=== PATIENT | male | born 1930 | race African-American/Black ===

== ENCOUNTER 2016-11-20 19:13 | Inpatient (IN) | payer MEDICARE, MEDICAID ==
[~2016-11-20] VITALS: Ht 180.3 cm; Wt 72.6 kg
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
[2016-11-20 19:20] VITALS: BP 171/74; PULSE 80; RESP 16; O2SAT 96
[2016-11-20 19:43] VITALS: BP 171/74; PULSE 78; RESP 22; O2SAT 97
[2016-11-20 20:02] LABS: BASOPHILS % (AUTO) 0.1 % (0-3); EOSINOPHILS % (AUTO) 0.4 % (0-5); MONOCYTES % (AUTO) 9.6 % (4-12); Mean Corpuscular Hemoglobin 29.7 pg (27.0-35.0); Mean Corpuscular Volume 89.2 fL (81-100); NEUTROPHILS % (AUTO) 73.8 % (40-74); Platelet Count 156 bil/L (150-400)
[2016-11-20 20:42] LABS: TROPONIN T 0.041 ug/L (0.0-0.011)
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
--- NOTE | 2016-11-20 21:25 | DRSVH ---
PROCEDURE: CT BRAIN WITHOUT CONTRAST ([id number]) INDICATIONS: altered, confused, TECHNIQUE: Noncontrast 4.5 mm thick angled axial sections acquired from the foramen magnum to the vertex, with c oronal reformats. COMPARISON: None. FINDINGS: Image quality: Excellent. CSF spaces: Basal cisterns are patent. No extra-axial fluid collections. The ventricles are symmet weston in size and shape. Brain: No intracranial bleeds or masses. There is cerebral volume loss for age, with resultant vent ricular and sulcal prominence. There are periventricular and deep white matter chronic small vessel ischemic changes. There is an area of encephalomalacia at the right frontoparietal junction deep whit e matter, extending into the gyrus overlying, consistent with old stroke but no new stroke is found. There is intracranial internal carotid artery atherosclerosis. Skull and face: Calvarium and visualized facial bones appear intact, without suspicious lesions. Sinuses: Visualized sinuses and mastoids are clear. 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 No acute disease. Dictated by: Miguel Ángel Henry M.D. on 11/20/2016 at 21:23 Approved by: Miguel Ángel Henry M.D. on 11/20/2016 at 21:23
--- NOTE | 2016-11-20 21:27 | DRSVH ---
PROCEDURE: CT ABDOMEN AND PELVIS WITH CONTRAST ([id number]) INDICATIONS: altered, confused,tense and tender belly TECHNIQUE: After the administration of intravenous contrast, 5 mm thick sections acquired from the diaphragm to the symphysis. 5 mm coronal and sagittal reformats were acquired. For radiation dose reduction, the following was used: automated exposure control, adjustment of mA and/or kV according to patient siz e. COMPARISON: None. FINDINGS: Image quality: Excellent. ABDOMEN: Lung bases: Lung bases are clear. Heart size is normal. Solid organs: Liver and spleen are normal in size and enhancement. There are scattered small hepati c and renal cortical cysts but no solid mass lesion is seen nor is there evidence of inflammatory tracy nge. Gallbladder the gallbladder appears normal. Biliary system is non dilated. Pancreas enhances normally. No adrenal nodules. Kidneys demonstrate normal size and enhancement, without hydronephros is. Peritoneum and bowel: Bowel loops demonstrate normal wall thickness and caliber. No free fluid or a ir. Nodes and vessels: No retroperitoneal or mesenteric adenopathy by size criteria. Aorta and inferior vena cava are normal in size. Miscellaneous: No ventral hernias. PELVIS: Genitourinary: Bladder wall thickness is normal. Miscellaneous: No inguinal hernias or adenopathy. Bones: No suspicious bony lesions. No vertebral body compression fractures. IMPRESSION: Nonspecific bowel gas pattern, with note is made of no evidence of underlying infection or neoplasm. Scattered hepatic and renal parenchymal cysts are present, none of which appear inflame d. A source of current altered mental status is not seen. Dictated by: Miguel Ángel Henry M.D. on 11/20/2016 at 21:26 Approved by: Miguel Ángel Henry M.D. on 11/20/2016 at 21:26
[2016-11-20 22:45] LABS: APPEARANCE,URINE CLOUDY (CLEAR,HAZY); COLOR,URINE YELLOW (YELLOW); OCCULT BLOOD,URINE MODERATE (NEGATIVE); PH,URINE 6.5 (5.0-8.0); UROBILINOGEN,URINE NORMAL (NORMAL)
[2016-11-20] MEDS ORDERED: cefTRIAXone Inj 2,000 MG in IV Premix 1 EACH IV ONE (22:55)
[2016-11-20] MEDS: 0.9% Sodium Chloride 1,000 ML IV SCH (23:21)
[2016-11-20] MEDS ORDERED: hydrALAZINE 20 mg/mL Inj IV ONE (23:55)
[2016-11-21] VITALS (12 sets, daily range): BP systolic 114–192; BP diastolic 62–98; PULSE 77–97; RESP 16–19; O2SAT 93–99
[2016-11-21] MEDS: 0.9% Sodium Chloride 1,000 ML IV SCH ×4 (00:07→18:03)
[2016-11-21] MEDS ORDERED: Ondansetron 2 mg/mL 2 mL Inj IVPUSH PRN (00:20)
[2016-11-21] MEDS ORDERED: Polyethylene Glycol (PEG) 17 Gm Powder PO PRN (00:20)
[2016-11-21] MEDS ORDERED: Alum-Mag Hydrox-Simeth 30 mL Suspension PO PRN (00:20)
[2016-11-21] MEDS ORDERED: HYDROcodone-APAP 5-325 mg Tablet PO PRN (00:20)
--- NOTE | 2016-11-21 00:40 | NUR ---
Admit Note Pt. arrived on floor around 0015. Pt. seemed very uncomfortable. Enid care was performed, and skin assessment was done. Pt. seems more comfortable. Pt.'s peripheral IV is intact and patent. Admission questions answered by daughter. Pt. is on RA. Will continue to monitor.
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
[2016-11-21] MEDS: Heparin 5,000 Unit/mL Inj SUBQ SCH ×3 (01:31→16:27)
[2016-11-21] MEDS ORDERED: OXYC10TA8 PO (01:46)
[2016-11-21] MEDS ORDERED: ATOR80TA77 PO (01:46)
[2016-11-21] MEDS ORDERED: OXYC20TA4 PO ×2 (01:46)
[2016-11-21] MEDS ORDERED: CARV3.122 PO (01:46)
[2016-11-21] MEDS ORDERED: NUTR113P PO (01:46)
[2016-11-21] MEDS ORDERED: ISOS30TA4 PO (01:46)
[2016-11-21] MEDS ORDERED: HYDR-3940 PO (01:46)
[2016-11-21] MEDS ORDERED: TRAZ-118 PO (01:46)
[2016-11-21] MEDS ORDERED: AMLO5TAB2 PO (01:46)
[2016-11-21] MEDS ORDERED: Labetalol 5 mg/mL 4 mL Inj IVPUSH ONE (02:40)
[2016-11-21 06:06] LABS: Phosphorus 2.5 mg/dL (2.5-4.9)
[2016-11-21 06:34] LABS: BASOPHILS % (AUTO) 0.1 % (0-3); EOSINOPHILS % (AUTO) 0.1 % (0-5); MONOCYTES % (AUTO) 9.8 % (4-12); Mean Corpuscular Hemoglobin 29.9 pg (27.0-35.0); Mean Corpuscular Volume 88.4 fL (81-100); NEUTROPHILS % (AUTO) 79.3 % (40-74); Platelet Count 174 bil/L (150-400)
[2016-11-21] MEDS ORDERED: hydrALAZINE 20 mg/mL Inj IV PRN (06:50)
[2016-11-21] MEDS: Isosorbide Mononitrate 30 mg ER24 Tablet PO SCH (09:22)
--- NOTE | 2016-11-21 09:30 | NUR ---
Patient Care Pt refused almost all care this morning. Pt refused to have ACHS checks, insulin, and Lovenox despite education. Pt refused to have labs drawn. Pt refused to have vitals taken. Pt accepted IV antibiotics and pain medication. Will continue to encourage pt to allow treatments for his benefit. Care continues. Addendum: 11/21/16 at 1128 by OLI MORSE RN Disregard. Note written on wrong pt.
--- NOTE | 2016-11-21 11:40 | NUR ---
Social Work Assessment: SW attempted to conduct assessment with patient. Patient is confused at this time and unable to participate. Patient is an 86 year old male admitted under observation status on 11/20/16 for AMS and UTI. SW contacted patient daughter Serena, who verified patient information. Patient payer as Medicare and [facility] supp secondary. Patient PCP as MD Guevara, last seen on the of the month. Patient resides in [facility] with daughter. Patient daughter states she cares for patient needs 24hrs/day and she doesn't work. Patient pharmacy of choice as [facility]. Patient has no previous HHC, SNF or AD history. Patient uses a cane and walker at home. Patient daughter states plan is for patient to return home following discharge. Patient daughter denied need for HHC at this time as she states that she is equipped to mange patient baseline at this time. If HHC recommended, choice as [facility]. HHC choice list offered and declined. No anticipated discharge needs at this time. SW to follow. PLAN: Home with daughter 24hr/day care and support via POV. Denied need for HHC but if needed choice as [facility]. SW to follow. Discharge pending clinical course Jose Guadalupe FARMER Addendum: 11/21/16 at 1148 by BRIEN HERRERA Amended: Links added.
--- NOTE | 2016-11-21 12:30 | NUR ---
Case Management: CAMPOS delivered and signed by daughter, Serena Covington. Original placed in chart and copy left at bedside. Beatris Baron RN
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
--- NOTE | 2016-11-21 17:37 | NUR ---
Activity Pt rested comfortably in bed during the shift. Pt is [place] and has a hard time understanding what is going on. Pt is incontinent of urine. When asked if he could use the urinal he stated to "leave me alone." Pt was compliant and taking medications during the morning but this afternoon when woken up to give his heparin he stated to "leave him alone," and refused the heparin. I will continue to monitor his agitation. Per pt daughter pt frequently says "help me lord, help me" daily at baseline. Experienced pt saying this during bath and brief changes. Care continues.
[2016-11-21] MEDS ORDERED: cefTRIAXone Inj 2,000 MG in IV Premix 1 EACH IV SCH (20:00)
[2016-11-21] MEDS: cefTRIAXone Inj 2,000 MG in Dextrose 5% Minibag Plus 50 ML IV SCH (20:13)
--- NOTE | 2016-11-22 | NUR ---
7-7am [employer] REFUSED VITAL SIGNS, RN IS AWARE. Addendum: 11/22/16 at 0021 by ZEFERINO PEREZ CNA Amended: Links added.
[2016-11-22] MEDS: Heparin 5,000 Unit/mL Inj SUBQ SCH ×3 (00:20→16:48)
--- NOTE | 2016-11-22 01:01 | NUR ---
Refusal of care Patient agitated and refusing care specifically Heparin injection at 0030. Demanded to be left alone, when explained the medication to be administered and the purpose of the medication, patient repeated that he wanted "to be left alone."
[2016-11-22 05:11] VITALS: BP 174/71; PULSE 78; RESP 18; O2SAT 95
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
[2016-11-22] MEDS: 0.9% Sodium Chloride 1,000 ML IV SCH ×2 (07:43→19:53)
[2016-11-22] MEDS: cefTRIAXone Inj 2,000 MG in Dextrose 5% Minibag Plus 50 ML IV SCH (08:24)
[2016-11-22] MEDS: Isosorbide Mononitrate 30 mg ER24 Tablet PO SCH (08:25)
[2016-11-22 11:20] VITALS: BP 148/68; PULSE 82; RESP 22; O2SAT 95
--- NOTE | 2016-11-22 14:35 | NUR ---
Confusion Pt. very confused, calling out for help if during position changes. Becomes agitated when trying to do assessment and med administration, saying he wants to be left alone. He took PO meds without complaint, but refused to have heparin injection. Pt. wearing SCDs.
[2016-11-22 16:10] VITALS: PULSE 80
[2016-11-22 16:35] VITALS: BP 137/55; PULSE 80; RESP 20; O2SAT 99
[2016-11-22 17:22] VITALS: PULSE 85
--- NOTE | 2016-11-22 18:00 | NUR ---
critical lab value abbey armendariz called to notify troponin level 0.046. dr. rachel notified, orders recd for troponin level.
[2016-11-22 20:00] VITALS: PULSE 85
[2016-11-23] VITALS (7 sets, daily range): BP systolic 122–155; BP diastolic 55–76; PULSE 60–80; RESP 16–18; O2SAT 94–98
[2016-11-23] MEDS: 0.9% Sodium Chloride 1,000 ML IV SCH ×2 (00:39→14:31)
[2016-11-23] MEDS: Heparin 5,000 Unit/mL Inj SUBQ SCH ×4 (01:25→23:11)
--- NOTE | 2016-11-23 06:01 | NUR ---
Evening lab value Night team hospitalist notified of change in lab values via cook page. Patient able to sleep intermittently throughout night, calling out Sinus rhythm 71 with IVCD. Bed in low position, call light within reach, and intentional rounding.
[2016-11-23] MEDS: cefTRIAXone Inj 2,000 MG in Dextrose 5% Minibag Plus 50 ML IV SCH (09:15)
[2016-11-23] MEDS: Isosorbide Mononitrate 30 mg ER24 Tablet PO SCH (09:17)
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
--- NOTE | 2016-11-23 13:21 | NUR ---
Palliative Care Palliative Care received verbal order from Dr Brown 11/23/16 to assist with goals of care. Patient is an 86 year old with history of chronic pain, HTN, possible stroke, possible MA and urinary incontinence. He was admitted 11/20/16 due to increasing confusion and weakness. He is receiving care for AMS and UTI. Patient lives with his daughter Serena. Serena Wishum (daughter) [phone] Palliative Care to follow. Freda Jamil
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
[2016-11-24] VITALS (7 sets, daily range): BP systolic 108–156; BP diastolic 61–67; PULSE 55–66; RESP 16–18; O2SAT 93–96
--- NOTE | 2016-11-24 02:53 | NUR ---
Patient Care Patient's ability to communicate needs improved, cooperative with care, distinctive decrease in calling out and less agitation. Answers questions appropriately with limitations possibly narrowed to hearing deficit. Will continue to monitor confusion. Bed in low position, call light within reach and intentional rounding.
[2016-11-24 06:37] LABS: BASOPHILS % (AUTO) 0.2 % (0-3); EOSINOPHILS % (AUTO) 1.4 % (0-5); MONOCYTES % (AUTO) 13.9 % (4-12); Mean Corpuscular Hemoglobin 29.2 pg (27.0-35.0); Mean Corpuscular Volume 90.9 fL (81-100); NEUTROPHILS % (AUTO) 62.1 % (40-74); Platelet Count 163 bil/L (150-400)
[2016-11-24 09:28] LABS: Unsaturated Iron Binding 103.6 ug/dL
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
--- NOTE | 2016-11-24 11:25 | NUR ---
NUTRITION ASSESSMENT: ASSESS: Pt is an 86yo M admitted for AMS and UTI. Pt continues to have some confusion but mentation is slowly improving. Pt is on a Heart Healthy diet and PO has been fair at 25-100%. Palliative care is involved for goals of care. PMHX: chronic pain, HTN, poss CVA, poss RI LABS: Reviewed. Cl 112, Bun 28, Bilingual Teacher 1.36, Ca 8.0, Alb 2.7 MEDS: Reviewed. GI: BMx1 11/22 SKIN: Boby 15 CURRENT WTS: 72kg, BMI 22.1kg/m2 DIET: Heart Healthy, PO 25-100% (PO avg is 54%) EST. NEEDS: Kcals:1800-2160kcal/day (25-30kcal/kg) Pro: 70-85g/day (1.0-1.2g/kg) NUTRITION DIAGNOSIS: 1.) Variable PO intake related to AMS as evidence by PO ranging from 25-100% NUTRITION INTERVENTION: 1.) Will add Ensure on L tray MONITOR / EVAL: PO, wt, labs, GI, POC, nutrition status. Will continue to monitor per moderate nutrition risk guidelines.
[2016-11-24] MEDS: cefTRIAXone Inj 2,000 MG in Dextrose 5% Minibag Plus 50 ML IV SCH (11:56)
[2016-11-24] MEDS: Isosorbide Mononitrate 30 mg ER24 Tablet PO SCH (11:58)
[2016-11-24] MEDS: Heparin 5,000 Unit/mL Inj SUBQ SCH ×2 (12:00→16:08)
--- NOTE | 2016-11-24 12:11 | PCM.PALLBR ---
Palliative Care Recommendation 86-year-old gentleman with history of prior CVA and possible PA, admitted with progressive encephalopathy of relatively short duration. Under treatment for urinary tract infection. His daughter/caregiver notes that he had a similar episode 1-2 years ago with complete recovery. Palliative medicine consulted to assist with determination of goals of care. Summary of palliative recommendations: -Symptom management (Pain/other)- comfortable at this time. Continued management per medical/hospitalist teams. History of chronic narcotic treatment , presumably for his chronic back pain- continue current medications and resume usual outpatient medications at discretion of hospitalist team. -DPOA/Advanced Directives/POLST- continues to be full code at this time. Daughter confirms this. She notes that "he wants to live to be 89". As the patient is symptomatically stable, overall clinically improving, and goals of care are clearly defined by his daughter, palliative medicine will sign off at this time. Please contact us if we may be of further assistance. Patient Goals: 1. Patient's daughter wants to be told the truth about his illness, even if it is unpleasant. 2. Patient's daughter would like to be told prognosis when it can be predicted, to better guide treatment decisions. Additional Medical Diagnoses with primary management by Hospitalist team include : #Acute Encephalopathy, Acute #Urinary tract Infection, acute #Acute Kidney Injury #Elevated Troponin #Hypertension, chronic, POA #History of Stroke and PA #Chronic Pain, POA #Tobacco Dependence, POA Problems: End of Life Preferences Full code Goals of Care His daughter hopes for recovery to baseline and return home with her Disposition To be determined Resuscitation Status Resuscitation Status: CPR: Attempt Resuscitation POLST Updates/Changes Previous POLST?: No . Pain: None Total time 40 minutes; >50% face to face with patient and family, providing counselling regarding plans and recommendations, and in care coordination with his medical teams. copies to: Flavio Guevara MD Palliative Brief Note Date of Service Nov 24, 2016 . Returned to reevaluate patient twice today. On first visit, his daughter and grandson were present and I spoke with her about his status, plans, etc. Nurse aides were helping him up to chair at this time and he was complaining loudly. His daughter felt that said that he was essentially back at his baseline- she said she could tell because he was yelling at her and swearing at her. She wanted to make sure that he was ambulated and up in the chair as much as possible so as to maintain strength level he previously had at home. She looks forward to continuing his care at home and continues to support full/aggressive medical treatment for any problems. Spoke with his bedside nurse and with physical therapist regarding his status. Returned later to reevaluate patient once more. At that time he was resting in bed but awakened easily, answers questions appropriately and overall appeared stronger and more coherent. Denied any shortness of breath, chest pain, abdominal pain, nausea or other. On exam, elderly gentleman in no distress. Vitals noted. Skin warm and dry. Head and neck exam without acute focal abnormalities. Lungs clear today, heart sounds regular, abdomen soft, scaphoid and benign. No ankle edema. Labs and imaging studies reviewed in detail. Jadon Madison MD Nov 24, 2016 12:11
--- NOTE | 2016-11-24 14:17 | NUR ---
CT 13[address] Pt off unit to CT scan. Pt VSS, NESBITT, still mildly confused and calling out. Alert to self only. IV infusing.
--- NOTE | 2016-11-24 15:32 | DRSVH ---
[facility] [address] [place] [address] Echocardiogram Report Name: DION PANIAGUA Study Date: 11/24/2016 Height: 71 in Hospital Exam Location: [facility] Weight: 159 lb Gender: Male BSA: 1.9 m2 : 1930 Age: 86 yrs BP: 150/67 mmHg Reason For Study: Elevated Troponin Ordering Physician: HOSPITALIST [facility] Performed By: Hebert Winters Referring Physician: ISRAEL CANTU Interpretation Summary There is severe concentric left ventricular hypertrophy. The ejection fraction is estimated to be 60-65%. Increased echogenicity of the myocardium is suggestive of amylodosis, or infiltrative process. There is moderate aortic valve sclerosis. There is mild tricuspid regurgitation. Procedure: A two-dimensional transthoracic echocardiogram with color flow and Doppler was performed. The study quality was technically good. There is no prior echocardiogram noted for this patient. The patient was in sinus bradycardia with heart rates between 55-63 bpm during the exam. Left Ventricle: The left ventricular cavity is small. There is severe concentric left ventricular hypertrophy. The ejection fraction is estimated to be 60-65%. Increased echogenicity of the myocardium is suggestive of amylodosis, or infiltrative process. Assessment of diastolic parameters indicates a relaxation abnormality of the left ventricle, consistent with normal filling pressures. Right Ventricle: The right ventricle grossly appears normal in size with probable normal systolic function. Atria: There is mild biatrial enlargement. Mitral Valve: The mitral valve is grossly normal. There is mild mitral annular calcification. There is trace mitral regurgitation. Aortic Valve: The aortic valve is trileaflet. There is moderate aortic valve sclerosis. There is no aortic valve stenosis. No aortic regurgitation is present. Tricuspid Valve: The tricuspid valve is normal. There is mild tricuspid regurgitation. Pulmonic Valve: The pulmonic valve is not well visualized. There is a trace or physiologic amount of pulmonic regurgitation. Great Vessels: The aortic root is normal size. The dimensions of the ascending aorta are normal. The pulmonary artery is normal size. The IVC is of normal diameter and collapses greater than 50% with a sniff. This suggests a low right atrial pressure of 3 mm Hg. Pericardium/ Pleura There is no pericardial effusion. There is no pleural effusion. MMode/2D Measurements & Calculations LVIDd: 3.5 cm RA long axis LVOT diam LVIDs: 2.3 cm LA A2 area: 19.5 cm FS: 32.4 % LA A4 area: 22.6 cm RA area AoV Opening EPSS: 0.48 cm LA length (vol): 5.7 cm IVSd: 1.7 cm LA vol: 65.6 ml : 20.8 cm Ao root diam LVPWd: 1.7 cm LA vol index RA vol : 64.5 ml asc Aorta RA Diam: 2.9 cm IVC diam: 0.98 cm : 33.7 mm2 LV bsihop. diameter/BSA LV sys. diameter/BSA RVD1 (basal) RVD2 (mid) (cm/m^2): 1.8 (cm/m^2): 1.2 : 3.0 cm TAPSE: 1.8 cm Doppler Measurements & Calculations Ao V2 max MV E max tian MV E/A: 0.64 TR max tian : 160.9 cm/sec : 66.8 cm/sec Med Peak E' Tian : 290.6 cm/sec Ao max P.4 mmHg MV A max tian TR max PG Ao mean P.6 mmHg : 104.3 cm/sec E/E' med: 14.7 : 33.8 mmHg LVOT Max Tian Lat Peak E' Tian PA V2 max : 112.3 cm/sec : 91.7 cm/sec JENNIFER(I,D): 2.4 cm E/E' lat: 11.5 PA mean PG sev ratio: 0.71 E/e' average : 1.5 mmHg MV A dur : 0.13 sec MV dec time: 0.49 sec Ao V2 mean LV V1 max PG PA V2 mean : 112.3 cm/sec : 58.7 cm/sec Ao V2 VTI: 34.3 cmLV V1 VTI PA pr(Accel) JENNIFER(V,D): 2.4 cm2 : 24.3 cm : 34.1 mmHg JENNIFER indexed to BSA (cm^2/m^2): 1.3 Electronically signed by: Chong Kemp on Reading Physician:11/24/2016 03:31 PM
--- NOTE | 2016-11-24 16:04 | DRSVH ---
PROCEDURE: CT BRAIN WITHOUT CONTRAST ([id number]) INDICATIONS: acute encephalopathy TECHNIQUE: Noncontrast 4.5 mm thick angled axial sections acquired from the foramen magnum to the vertex, with c oronal reformats. COMPARISON: [facility], CT, CT BRAIN WO CON, 11/20/2016, 21:08. FINDINGS: Image quality: Excellent. CSF spaces: Basal cisterns are patent. No extra-axial fluid collections. The ventricles are symmet weston in size and shape. Brain: No intracranial bleeds or masses. There is cerebral volume loss for age, with resultant vent ricular and sulcal prominence. There are periventricular and deep white matter chronic small vessel ischemic changes. Chronic right frontal infarct is stable compared to the prior examination. Old, sma ll, right thalamic lacunar infarct is noted. 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 Skull and face: Calvarium and visualized facial bones appear intact, without suspicious lesions. Sinuses: Visualized sinuses and mastoids are clear. IMPRESSION: No acute intracranial disease process. Dictated by: Janelle Salmeron MD, PhD on 11/24/2016 at 16:02 Approved by: Janelle Salmeron MD, PhD on 11/24/2016 at 16:02
[2016-11-24] MEDS: 0.9% Sodium Chloride 1,000 ML IV SCH (16:07)
--- NOTE | 2016-11-24 19:29 | NUR ---
Activity Pt agreeable to care during most of shift, but is confused and calling out at times. Confused and alert to self only. Will answer that he is having some back pain, but declines medication and has periods of sleeping comfortably. Pt able to get up to chair twice today for meals. At end of shift pt was having increasing agitation, yelling and telling us to go away. Medications given to help calm pt and he is resting more comfortably now.
--- NOTE | 2016-11-24 21:57 | NUR ---
Case Management: Called and spoke with Serena Covington (pt's daughter) to explain IMM, all questions answered. Serena signed IMM at 1600 and placed in chart. Jade Shine RN
[2016-11-25] VITALS (8 sets, daily range): BP systolic 124–186; BP diastolic 54–87; PULSE 60–86; RESP 16; O2SAT 96
[2016-11-25] MEDS: Heparin 5,000 Unit/mL Inj SUBQ SCH ×3 (00:53→16:30)
[2016-11-25] MEDS: 0.9% Sodium Chloride 1,000 ML IV SCH ×2 (01:13→14:33)
[2016-11-25 05:08] LABS: Free Thyroxine Index 2.1 (1.2-4.9); T3 Uptake 22 % (24-39); Thyroxine (T4) 9.5 ug/dL (4.5-12.0); Vitamin B12 650 pg/mL (211-946)
[2016-11-25 05:50] LABS: BASOPHILS % (AUTO) 0.2 % (0-3); MONOCYTES % (AUTO) 12.9 % (4-12); Mean Corpuscular Hemoglobin 29.5 pg (27.0-35.0); Mean Corpuscular Volume 89.3 fL (81-100); NEUTROPHILS % (AUTO) 60.6 % (40-74); Platelet Count 171 bil/L (150-400)
--- NOTE | 2016-11-25 06:21 | NUR ---
Agitation Pt agitated whenever cares are performed, screaming and cursing at staff- ativan provides him some sleep, but still agitated when awake. No complaints of pain despite screaming during repositioning. Pt willing to take his PO meds, requires crushing. IVF running, on tele with Sinus rythm, on room air. No cardiac, respiratory, or GI distress. Will continue cares.
[2016-11-25] MEDS: Isosorbide Mononitrate 30 mg ER24 Tablet PO SCH (09:14)
[2016-11-25] MEDS: cefTRIAXone Inj 2,000 MG in Dextrose 5% Minibag Plus 50 ML IV SCH (11:49)
--- NOTE | 2016-11-25 14:37 | PCM.DIMED ---
Discharge Instructions Date of Service Nov 25, 2016 Dates of Hospitalization Nov 20, 2016 at 23:27 Discharge Diagnosis Discharge Diagnosis Acute encephalopathy secondary to UTI Hypertension Acute on Chronic kidney disease History of CVA and NC Chronic pain with chronic opioid prescriptions Tobacco dependence Test Results Negative CT head CT abdomen: IMPRESSION: Nonspecific bowel gas pattern, with note is made of no evidence of underlying infection or neoplasm. Scattered hepatic and renal parenchymal cysts are present, none of which appear inflamed. A source of current altered mental status is not seen. Dictated by: Miguel Ángel Henry M.D. on 11/20/2016 at 21:26 Diet Low fat, Low Sodium, Heart Healthy Activity No restrictions (please stand and walk with assistance by family members or friends) Call your provider Fever or Chills, Shortness of breath, Bleeding, Chest pain Patient Instructions I have prescribed an antibiotic that I would like you to take for 2 more days. This antibiotic is called cefuroxime, please take as prescribed Follow-up plan Please follow up with her primary care doctor in 1 week Follow-up Provider: Flavio Guevara MD Follow-up with PCP in: 1 week Jadon Slater DO Nov 25, 2016 14:37
[2016-11-25] MEDS ORDERED: CEFU250T82 PO (14:41)
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
--- NOTE | 2016-11-25 15:57 | NUR ---
Social Work: Continued Discharge Plan: Parquet Floor Layer called patient's daughter, Serena Covington, to confirm that she did not want HH for the patient. Serena Covington confirmed that she does not want HH. Patient's daughter states that she will picking machine operator the patient when discharge if the nurse calls and notify her when the patient is ready. Parquet Floor Layer notified patient's nurse to call his daughter if he is ready for discharge. SW will continue to follow. Plan: Patient is likely to discharge home with daughter (24 hour caregiver0 in POV. Patient's daughter states that she does not need HH. SW will continue to follow. Hillary Wiggins LMSW, ACM
--- NOTE | 2016-11-25 18:18 | NUR ---
DISCHARGE Patient is alert only to person. Hydrocodone 1 tab administered for c/of generalized pain. Tolerating his diet well. Denies nausea. No emesis noted. Denies SOB. Patient was able to get OOB and sat in the chair for breakfast and lunch. Tolerated activity. Pls. refer to notes RE: HHS. IV saline lock d/cd. Discharge instructions, care notes and prescription was given to Serena, the patients daughter, who is his primary caregiver. She verbalized understanding. Discharged to home with his daughter and all his personal belongings. (Copy of D/C is in the chart).
== END 2016-11-25 17:39 | disposition home or self-care (01) | DRG 698 ==
LOC: SED 19:13 → EDBD 19:13 → OBSVTOIN 23:27 → INTOOBSV 23:27 → OSC 23:27
PROVIDERS: ADMIT Hospitalist; ATTEND Hospitalist
DX: T83.518A Infection and inflammatory reaction due to other urinary catheter, initial encounter (principal); G93.40 Encephalopathy, unspecified; N39.0 Urinary tract infection, site not specified; I10 Essential (primary) hypertension; R32 Unspecified urinary incontinence; G89.4 Chronic pain syndrome; J44.9 Chronic obstructive pulmonary disease, unspecified; F17.210 Nicotine dependence, cigarettes, uncomplicated; Z86.73 Personal history of transient ischemic attack (TIA), and cerebral infarction without residual deficits; I25.2 Old myocardial infarction

== ENCOUNTER 2016-11-28 08:33 | Inpatient (IN) | payer MEDICARE, MEDICAID ==
[2016-11-28] VITALS (11 sets, daily range): BP systolic 164–198; BP diastolic 71–99; PULSE 71–99; RESP 15–30; O2SAT 88–100
[~2016-11-28] VITALS: Ht 180.3 cm; Wt 63.6 kg
[~2016-11-28 08:33] MED LIST: AMLO5TAB2 PO; ATOR80TA77 PO; CARV3.122 PO; CEFU250T82 PO; HYDR-3940 PO; ISOS30TA4 PO; NUTR113P PO; OXYC10TA8 PO; OXYC20TA4 PO; TRAZ-118 PO
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
[2016-11-28] MEDS ORDERED: Lidocaine Topical 2% 30 mL Jelly ONE (08:53)
--- NOTE | 2016-11-28 08:53 | ABG ---
DateTimeAnalyzed 08:49:00 -_ pH ____7.261 - pCO2 ___51.5__ -mmHg pO2 ___67.9__ -mmHg HCO3- ___22.4__ -mmol/L ABE ___-4.6__ -mmol/L tHb ___12.9__ -g/dL O2Hb ___88.2__ -% COHb ____1.5__ -% MetHb ____0.9__ -% sO2 ___90.4__ -% FIO2 __100.0__ -% Drawn By LAB - Date/Time Notified____ 08:53:00 -_ Spontaneous_RR ___30.0__ -b/min Liter_Flow ___15.0__ -L/min Oxygen Device 1 NON RE-SATYA - Notified By JJ - Notified Whom DR LAURSEN - B 752 -mmHg tO2 ___16.1__ -Vol% Trey test N/A -
[2016-11-28 09:00] LABS: BASOPHILS % (AUTO) 0.4 % (0-3); EOSINOPHILS % (AUTO) 0.2 % (0-5)
[2016-11-28 09:04] LABS: MONOCYTES % (AUTO) 15.9 % (4-12); Mean Corpuscular Hemoglobin 29.8 pg (27.0-35.0); Mean Corpuscular Volume 91.4 fL (81-100); NEUTROPHILS % (AUTO) 65.3 % (40-74); Platelet Count 151 bil/L (150-400)
[2016-11-28 09:44] LABS: TROPONIN T 0.08 ug/L (0.0-0.011)
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
[2016-11-28 10:07] LABS: APPEARANCE,URINE SLIGHTLY CLOUDY (CLEAR,HAZY); COLOR,URINE BLOODY (YELLOW); OCCULT BLOOD,URINE LARGE (NEGATIVE)
[2016-11-28 10:08] LABS: UROBILINOGEN,URINE NORMAL (NORMAL); YEAST,URINE FEW (NONE SEEN)
[2016-11-28] MEDS ORDERED: 0.9% Sodium Chloride 1,000 ML IV ONE ×2 (10:22→10:35)
[2016-11-28] MEDS ORDERED: Vancomycin Dose per Pharmacist XX ONE (10:25)
[2016-11-28] MEDS ORDERED: levoFLOXacin Inj 750 MG in IV Premix 1 EACH IV ONE (10:25)
[2016-11-28] MEDS ORDERED: Piperacillin-Tazo 3.375 Gm Inj 3.375 GM in Dextrose 5% Minibag Plus 50 ML IV ONE (10:25)
[2016-11-28] MEDS: Vancomycin Dose per Pharmacist XX SCH (12:25)
--- NOTE | 2016-11-28 12:32 | NUR ---
Evaluation completed. Please go to "Notes" then click on "Assessments and Notes" (bottom left corner of screen). Then select appropriate discipline tab on top of screen.
[2016-11-28 13:41] LABS: TROPONIN T 0.128 ug/L (0.0-0.011)
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
--- NOTE | 2016-11-28 14:35 | PCM.CONPHA ---
Subjective Being found on the floor with food in the mouth Reason for Pharmacy Consult: Vancomycin Dosing Assessment/Plan Assessment/Plan Pharmacy Kinetic Dosing Vancomycin Indication: PNA (recent hospital admit) Vanc goal trough: 15-20 mcg/mL Pt wt: 69 kg Other ABX: Zosyn SCr: 1.54 WBC: 4.8 Cultures: Blood = pending Assessment/Plan: - Loading dose of vancomycin 1,250 mg given. -Will schedule vancomycin 750 mg Q24H based on ~11 mg/kg. -Will schedule random level to be drawn on 11/30/16 @1230 to monitor for accumulation. Pharmacy appreciates consult and will continue to monitor. Thanks, Ian Park, PharmD Ian Park Nov 28, 2016 14:35
[2016-11-28 15:23] LABS: Creatine Kinase 177 U/L (21-232)
--- NOTE | 2016-11-28 16:15 | NUR ---
Admission Patient admitted to the floor at approx 1230 from Ed. Admission questions and medical list completed by primary RN. It was difficult to answer some of the admission questions due to family members present not to familiar with patient's care. Patient was a difficult to get history from. Vancomycin started right away upon patient being situated into the room. Patient complained of pain all over and yells when touched. gave 2mg morphine upon orders. Patient became more calm after morphine was given. Put bed in lowest position, kane alarm bed initiated and call light within reach.
[2016-11-28] MEDS: Albuterol-Ipratropium 3 mL Inhalation Solution NEB SCH ×2 (16:29→20:30)
[2016-11-28] MEDS ORDERED: SODIUM CHLORIDE 0.9% IV SCH (18:30)
[2016-11-28] MEDS ORDERED: PERAMIVIR IV SCH (18:30)
[2016-11-28] MEDS: Piperacillin-Tazo 3.375 Gm Inj 3.375 GM in Dextrose 5% Minibag Plus 50 ML IV SCH (21:11)
[2016-11-29] VITALS (12 sets, daily range): BP systolic 137–171; BP diastolic 68–78; PULSE 64–115; RESP 16–24; O2SAT 92–98
[2016-11-29] MEDS ORDERED: LORazepam 1 mg Tablet PO ONE (00:35)
[2016-11-29] MEDS: Albuterol-Ipratropium 3 mL Inhalation Solution NEB SCH ×6 (00:40→20:23)
--- NOTE | 2016-11-29 03:52 | NUR ---
Restless/ O2 sats unable to orient patient. he appears to answer simple questions at times, but not consistently. pt yelling out loud, observed to be restless, anxious and in some distress around 00:40, HR was in the 120s per school lunch monitor, O2 sats ranging 86-88% on 14 L oxy mask, respiratory effort increased with intermittent yelling, MD notified, new order obtained for Ativan x1. Ativan has been effective, pt has been sleeping since medication administered. pt HR now ranging 60-80, sats 98% on 7.5L oxy mask, work of breathing observed to be relaxed, RR 17 breaths/min. 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 continuing to monitor.
[2016-11-29] MEDS: Piperacillin-Tazo 3.375 Gm Inj 3.375 GM in Dextrose 5% Minibag Plus 50 ML IV SCH ×3 (04:56→22:15)
[2016-11-29 07:15] LABS: BASOPHILS % (AUTO) 0.1 % (0-3); EOSINOPHILS % (AUTO) 0 % (0-5); MONOCYTES % (AUTO) 7.8 % (4-12); Mean Corpuscular Hemoglobin 29.6 pg (27.0-35.0); Mean Corpuscular Volume 91.9 fL (81-100); NEUTROPHILS % (AUTO) 83.1 % (40-74); Platelet Count 128 bil/L (150-400)
[2016-11-29 07:59] LABS: Magnesium 1.7 mg/dL (1.6-2.6); Phosphorus 3.6 mg/dL (2.5-4.9)
[2016-11-29 08:06] LABS: TROPONIN T 0.115 ug/L (0.0-0.011)
[2016-11-29] MEDS: Vancomycin Dose per Pharmacist XX SCH (08:30)
--- NOTE | 2016-11-29 11:31 | NUR ---
Palliative Care Palliative Care received verbal order from Dr Ross 11/29/16 to assist with goals of care. Patient was readmitted 11/28/16 after being found down on the floor while eating. Palliative Care Team saw patient during recent admission. Serena Covington (daughter) [phone] Palliative Care to follow. Freda Jamil
[2016-11-29] MEDS ORDERED: Vancomycin Inj 1,000 MG in IV Premix 1 EACH IV SCH (13:00)
--- NOTE | 2016-11-29 15:20 | NUR ---
Social Work-initial assessment: Data:See initial assessment. Pt is a 86 y/o male who was admitted on 11/28/16 for sepsis per H&P. Pt's insurance is [facility] and [facility] and PCP is Flavio Guevara MD. EMR Reviewed. SENDY placed a call to daughter Serena [phone] to discuss discharge planning, SENDY role explained. Pt resides at home with daughter Serena who provides 24/7 care for pt. Pt uses a fww at baseline and does not drive. Pt has no fci care or VA benefits. Pt has no HH history, but has been to SNF in [place]. Pt's CHARLES CM is Shilpa,updated clinicals faxed. Pt received 137 hours a month. Pt's daughter is CHARLES caregiver. SW discussed DPOA/ advanced directive, daughter does not believe this have completed this. Daughter anticipates to take pt home at discharge either private vehicle or Medicaid taxi( pt did arrive via EMS). SW provided phone number and plan. SW will continue to follow. Assessment:Pt who has 24/7 care. Plan:Pt to discharge home with daughter to provide 24/7 care when medically stable. SW will continue to follow. DARIAN Pérez Addendum: 11/29/16 at 1524 by SERAFIN BAILEY Amended: Links added.
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
[2016-11-29] MEDS ORDERED: 0.9% Sodium Chloride 250 ML ONE (18:22)
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
[2016-11-30] VITALS (13 sets, daily range): BP systolic 158–173; BP diastolic 76–90; PULSE 65–79; RESP 16–20; O2SAT 91–97
[2016-11-30] MEDS: Albuterol-Ipratropium 3 mL Inhalation Solution NEB SCH ×5 (00:04→19:54)
[2016-11-30] MEDS: Piperacillin-Tazo 3.375 Gm Inj 3.375 GM in Dextrose 5% Minibag Plus 50 ML IV SCH ×3 (05:19→20:15)
--- NOTE | 2016-11-30 06:22 | NUR ---
Uneventful Nigh: Pt had an uneventful night, slept most of the night. Pt does yell out at times which in known to be his baseline per daughter. Pt denied pain, chest pain and SOB. Pleasantly confused.
[2016-11-30 07:00] LABS: BASOPHILS % (AUTO) 0.2 % (0-3); EOSINOPHILS % (AUTO) 0.2 % (0-5); MONOCYTES % (AUTO) 10.6 % (4-12); Mean Corpuscular Hemoglobin 29.4 pg (27.0-35.0); Mean Corpuscular Volume 91.8 fL (81-100); NEUTROPHILS % (AUTO) 64.9 % (40-74); Platelet Count 164 bil/L (150-400)
[2016-11-30 07:26] LABS: Magnesium 1.8 mg/dL (1.6-2.6); Phosphorus 2.5 mg/dL (2.5-4.9)
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
[2016-11-30] MEDS: Isosorbide Mononitrate 30 mg ER24 Tablet PO SCH (13:23)
[2016-11-30] MEDS ORDERED: Vancomycin Serum Trough XX ONE (16:30)
--- NOTE | 2016-11-30 18:28 | PCM.PALLBR ---
Palliative Care Recommendation Summary of palliative recommendations: -Symptom management (Pain/other) Pain seems to get adequate relief with his oxycodone. At this point I consider this palliative Agitation we will give try of quetiapine 25 at bedtime increasing as needed-we will start this tonight. 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 Might help to have physical therapy evaluate regarding stability with transfer Loss of consciousness at home thought to be due to or cause of aspiration pneumonia -DPOA/Advanced Directives/POLST-no paperwork has been completed. Patient is not capable for AD/DPOA. We will review CODE STATUS tomorrow- Attempted meeting with his daughter but did not coordinate and will try again tomorrow -Family/emotional support remarkably strong support by his family. His daughter feels that she has adequate support at home -Spiritual support-not needed for patient. Problems: End of Life Preferences full code-- needs further review Goals of [facility] with as much support for daughter as is available Resuscitation Status Resuscitation Status: CPR: Attempt Resuscitation Total time 20 minutes; >50% face to face with patient and/or family, providing counselling regarding plans and recommendations, and in care coordination with his/her medical teams. I also spent an additional [ ] minutes counseling for advanced care planning with the patient/the patients family/the surrogate decision maker. Palliative Brief Note Date of Service Nov 30, 2016 . Patient seen this a.m. with no family present. He is very hard of hearing. No hearing aides per patient He does complain of chronic back pain states pain pills help and that he has been on them for years Communication is difficult due to hearing deficit. Reviewed goals of care and his response is what ever the doctor thinks is right. He states he is not strong enough to go home but also is not interested in [place] [facility]. He just did not find it will "take a while" He does consider the level of independence he has as tolerable. He is not interested in being completely bed ridden. He is able to verbalize appreciation for his daughter's care. He verbalizes that she is the one to speak for him if he cannot. Yady Dunn MD Nov 30, 2016 18:28
[2016-11-30] MEDS ORDERED: 0.9% Sodium Chloride 250 ML ONE (20:43)
[2016-12-01] VITALS (13 sets, daily range): BP systolic 117–172; BP diastolic 68–86; PULSE 64–84; RESP 16–22; O2SAT 90–98
[2016-12-01] MEDS: Albuterol-Ipratropium 3 mL Inhalation Solution NEB SCH ×7 (00:21→21:17)
[2016-12-01] MEDS: Piperacillin-Tazo 3.375 Gm Inj 3.375 GM in Dextrose 5% Minibag Plus 50 ML IV SCH ×2 (04:10→17:11)
[2016-12-01 07:11] LABS: BASOPHILS % (AUTO) 2.9 % (0-3); EOSINOPHILS % (AUTO) 1.2 % (0-5); MONOCYTES % (AUTO) 13.5 % (4-12); Mean Corpuscular Hemoglobin 29.5 pg (27.0-35.0); Mean Corpuscular Volume 88.9 fL (81-100); Platelet Count 190 bil/L (150-400)
[2016-12-01 07:52] LABS: Phosphorus 2.3 mg/dL (2.5-4.9)
[2016-12-01] MEDS: Isosorbide Mononitrate 30 mg ER24 Tablet PO SCH (09:25)
--- NOTE | 2016-12-01 10:48 | NUR ---
NUTRITION ASSESSMENT: ASSESS: 86 yo Male admitted for sepsis. Pt diet has been advanced to pureed, nectar thick per ST with pt eating 25% of meals. Palliative care is involved for goals of care. PMHX: chronic pain, HTN, poss CVA, poss AL LABS: Reviewed. Alb 2.6. MEDS: Reviewed. GI: No BM reported. CURRENT WTS: 68.4 kg. Admit wt: 69 kg. DIET: Pureed, [place] Thick. PO 25%. EST. NEEDS: Kcals:[id number] kcal/day (25-30 kcal/kg BW) Pro: 70-85 g/day (1.0-1.2 g/kg BW) NUTRITION DIAGNOSIS: 1.) Inadequate oral intake related to chewing / swallowing difficulties as evidenced by po intake of 25%. 2.) Chewing / swallowing difficulties related to cognitive impairment as evidenced by current need for mechanically altered diet texture, ST following. NUTRITION INTERVENTION: 1.) Will add [place] thick ensure to all trays to encourage adequate po intake. 2.) Continue to advance diet as able per ST recommendations. MONITOR / EVAL: PO intake, weight, labs, GI, nutrition status. Will continue to monitor per moderate nutrition risk guidelines.
--- NOTE | 2016-12-01 12:35 | NUR ---
Social Work: Readiness for d/c Data: Pt is on day 3 of hospitalization. EMR reviewed. Pt discussed in rounds. MD states pt likely to d/c tomorrow. PT attempted to work with pt, pt refusing. Pt plans to go home via POV with family providing 24/7 caregiving. No d/c planning needs at this time. STOCK PATCH SAWYER will continue to follow if needs arise. Assessment: Pt with 24/7 caregiving. Has CHARLES Plan: Pt will d/c home via POV with family providing 24/7 caregiving. No d/c planning needs at this time. STOCK PATCH SAWYER will continue to follow if needs arise. DARIAN Cortez
[2016-12-01 13:08] LABS: Free Lambda Lt Chains 77.15 mg/L (5.71-26.30)
--- NOTE | 2016-12-01 14:10 | PCM.PALLBR ---
Palliative Care Recommendation Summary of palliative recommendations: 12/01/16--Discussion with daughter acknowledging gradual decline over this past year-most recently declining to get out of bed, sit side of bed etc. He verbalizes wanting to live to be 89 but he is continuing to decline physically and mentally. Suspect moderately severe baseline lung ds with 70 yrs of smoking. Some concern for hematuria with long smoking hx with increased risk for bladder CA. 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 Reviewed all this with his daughter who is the one most cognisant of his decline and she agrees with the decision to DNR/DNI status. She would like trial of HH due to 2 recent hospitalizations, weakness with goal to strengthen. If he continues to decline- she is willing and interested in the option of hospice to support her father at home. Code status changed to DNR POLST pending review with his daughter- I don't think he is able to understand enough to sign this. -Symptom management (Pain/other) Pain seems to get adequate relief with his oxycodone. At this point I consider this palliative Agitation we will give try of quetiapine 25 at bedtime increasing as needed-we will start this tonight. 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 Might help to have physical therapy evaluate regarding stability with transfer Loss of consciousness at home thought to be due to or cause of aspiration pneumonia -DPOA/Advanced Directives/POLST-no paperwork has been completed. Patient is not capable for AD/DPOA. We will review CODE STATUS tomorrow- Attempted meeting with his daughter but did not coordinate and will try again tomorrow -Family/emotional support remarkably strong support by his family. His daughter feels that she has adequate support at home -Spiritual support-not needed for patient. Problems: End of Life Preferences DNR/DNI. Limited Goals of long term with as much support for daughter as is available. HH if possible with consideration for Hospice if deteriorates further Resuscitation Status Resuscitation Status: DNR/DNI:Do Not Resuscitate/Intubate Limited Interventions: BiPAP, Medications and IV Fluid POLST Updates/Changes Artificially Admin Nutrition: No Artifical Nutrition by Tube POLST Discussed with: Health Care Agent ([facility]POA[facility]) . Advanced Care Planning Address: Code status change Symptom management: Agitation, Dyspnea Total time 45 minutes; >50% face to face with patient and/or family, providing counselling regarding plans and recommendations, and in care coordination with his/her medical teams. I also spent an additional 25 minutes counseling for advanced care planning with the patient/the patients family/the surrogate decision maker. copies to: Flavio Guevara MD Palliative Brief Note Date of Service Dec 01, 2016 . Pt declined to get out of bed for PT assessment. By hx he declines often but his daughter cajoles him into doing it most of the time. She was not here for PT eval. He eats only when fed-spoon fed pureed diet- seems to tolerate this. TC with daughter re status and home support options. She is concerned since home for 1-2 days from last hosp and then back with pneumonia. She would appreciate assist with eval from HH and hopefully some start at PT. She is able to continue exercises once she has the info and support. He continues to require O2-which he did not before this admission. O: doing OK on NC with sat mid 90's very UTE but calm while eating and no coughing lungs- moist bronchitic cough with request for deep breath labs stable with normal WBC, mild anemia and CR 1.43 Yady Dunn MD Dec 01, 2016 14:09
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
[2016-12-02] VITALS (15 sets, daily range): BP systolic 124–148; BP diastolic 62–74; PULSE 61–83; RESP 18–20; O2SAT 91–99
[2016-12-02] MEDS: Albuterol-Ipratropium 3 mL Inhalation Solution NEB SCH ×6 (00:30→20:51)
--- NOTE | 2016-12-02 01:40 | NUR ---
vs refused patient refused to have bp or temp taken. given emotional support. turned to right side and changed brief care ongoing.
[2016-12-02] MEDS: Piperacillin-Tazo 3.375 Gm Inj 3.375 GM in Dextrose 5% Minibag Plus 50 ML IV SCH ×2 (04:11→16:50)
[2016-12-02] MEDS: Isosorbide Mononitrate 30 mg ER24 Tablet PO SCH (08:25)
[2016-12-02 10:21] LABS: BASOPHILS % (AUTO) 1.4 % (0-3); EOSINOPHILS % (AUTO) 0.7 % (0-5); MONOCYTES % (AUTO) 12.8 % (4-12); Mean Corpuscular Hemoglobin 29.8 pg (27.0-35.0); Mean Corpuscular Volume 91.2 fL (81-100); NEUTROPHILS % (AUTO) 54.4 % (40-74); Platelet Count 195 bil/L (150-400)
[2016-12-02 10:44] LABS: Magnesium 1.8 mg/dL (1.6-2.6); Phosphorus 2.1 mg/dL (2.5-4.9)
--- NOTE | 2016-12-02 10:56 | NUR ---
Evaluation completed. Please go to "Notes" then click on "Assessments and Notes" (bottom left corner of screen). Then select appropriate discipline tab on top of screen.
--- NOTE | 2016-12-02 12:35 | NUR ---
Palliative care note D/A: Dr Dunn has competed POL. It reads DNR/DNI with limited additional measures. Per Dr. Dunn instructions-have mailed copy of POLST to pt PCP, Dr. Flavio Guevara, care [facility]. P: Palliative to continue to follow. Tasha MITCHELL [facility] Addendum: 12/02/16 at 1431 by SERAFIN REY Palliative care note amendment D/A: Phone call to [facility] and case discussed with Liza. Have asked agency to please follow up with pt dtr about a week post dc. Current plan is for pt to return home to care of his dtr with HH. Dtr has indicated that should pt fail to progress with rehab through HH, she will consider hospice. P: Palliative care to follow as needed. Tasha MITCHELL [facility]
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
[2016-12-03] VITALS (11 sets, daily range): BP systolic 133–172; BP diastolic 65–86; PULSE 65–91; RESP 18–20; O2SAT 90–99
[2016-12-03] MEDS: Albuterol-Ipratropium 3 mL Inhalation Solution NEB SCH ×3 (00:30→08:10)
--- NOTE | 2016-12-03 03:40 | NUR ---
Uneventful night Patient slept off and on throughout the night. Alert to self only. Hard of hearing. yelling out at times. Patient attempted to get out of bed. bed alarm in place. Patient was easily redirected. Q2 hour turns implemented. will continue to monitor.
[2016-12-03] MEDS ORDERED: 0.9% Sodium Chloride 250 ML ONE (04:22)
[2016-12-03] MEDS: Piperacillin-Tazo 3.375 Gm Inj 3.375 GM in Dextrose 5% Minibag Plus 50 ML IV SCH ×2 (04:34→16:39)
[2016-12-03] MEDS ORDERED: Albuterol-Ipratropium 3 mL Inhalation Solution NEB PRN (08:35)
[2016-12-03] MEDS: Isosorbide Mononitrate 30 mg ER24 Tablet PO SCH (09:07)
--- NOTE | 2016-12-03 10:36 | NUR ---
Oxygen Goal O2 sats 90-92%, per MD. Pt currently in RA, sats 91% awake. Will continue to monitor.
--- NOTE | 2016-12-03 12:56 | NUR ---
Social Work-readiness for discharge: Data:EMR reviewed. Pt is on day 5 of hospitalization for sepsis per H&P. Pt is not medically stable, anticipated 1-2 more days. Pt still requiring O2. PT has cleared pt for home with HH services. Pt's daughter Serena is his 24/7 caregiver. SW followed up with daughter Serena via phone. SW explained recommendation of HH services, HH choice list provided. Pt's daughter is agreeable and has no agency preference. SW referred to [facility] and made referral to Vijay Andersen with [facility] for RN and PT, access given. F2F in folder. SW will continue to follow. Assessment:Pt who would benefit from HH. Plan:Pt to discharge home with 24/7 care from daughter via POV or Medicaid taxi. Referral made to [facility] for RN and PT, access given. F2F in folder. SW will continue to follow. DARIAN Pérez
--- NOTE | 2016-12-03 13:05 | NUR ---
choice list provided. DARIAN Pérez
--- NOTE | 2016-12-03 18:19 | NUR ---
Vtach Pt has 2 episodes of 5 beats of Vtach today, unsustained. Pt asleep both episodes, asymptomatic upon assessing pt.
--- NOTE | 2016-12-03 18:20 | NUR ---
Uneventful day Pt has slept most of the day with periodic episodes of calling out, "Leonides help me." Pt gets very anxious when RN and SPECIAL AGENT come to do brief check and change, pt need reassurance and explanation of what is being done. Pt is currently resting comfortably in bed with call light within reach, bed low and locked, intentional rounding.
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
--- NOTE | 2016-12-04 00:16 | NUR ---
Placed pt on overnight sleep study device from [facility] per MD order. Removed pt from and advised nurse that pt must have 20 minutes of desaturation below 88% before 02 can be put back on the pt. Pt resting comfortably on RA with sp02 of 95%. Will continue to monitor. Barbara Paredes, CURTAIN CUTTER
[2016-12-04 01:24] VITALS: BP 168/94; PULSE 78; RESP 16; O2SAT 89
[2016-12-04 04:32] VITALS: BP 178/85; PULSE 80; RESP 16; O2SAT 88
[2016-12-04] MEDS: Piperacillin-Tazo 3.375 Gm Inj 3.375 GM in Dextrose 5% Minibag Plus 50 ML IV SCH (04:49)
[2016-12-04 04:51] VITALS: BP 152/85; PULSE 73
--- NOTE | 2016-12-04 07:37 | NUR ---
0725 - overnight oximetry removed from pt. RA sats 91% at time of removal.
[2016-12-04] MEDS: Isosorbide Mononitrate 30 mg ER24 Tablet PO SCH (07:53)
[2016-12-04 08:20] VITALS: PULSE 80; RESP 18; O2SAT 91
[2016-12-04 09:29] VITALS: BP 140/81; PULSE 80; RESP 18; O2SAT 91
--- NOTE | 2016-12-04 10:00 | NUR ---
SW left message for daughter Serena regarding JESSICA. Thalia Hanna,STEAM FITTER HELPER
[2016-12-04] MEDS ORDERED: 0.9% Sodium Chloride 250 ML ONE (10:05)
[2016-12-04 10:15] VITALS: PULSE 78
--- NOTE | 2016-12-04 11:38 | PCM.DIMED ---
Discharge Instructions Date of Service Dec 04, 2016 Dates of Hospitalization Nov 28, 2016 at 12:39 Discharge Diagnosis Discharge Diagnosis Acute respiratory failure secondary to sepsis from pneumonia Hypoxia Troponemia Infiltrative cardiomyopathy suggestive of amyloidosis Hypertension Medication Instructions You have been prescribed an antibiotic please take the entire prescription. Do not leave any leftover pills Diet Other (pured) Activity Other (gradually returned to normal baseline daily activities) Call your provider Fever or Chills, Shortness of breath, Bleeding, Chest pain, Vomitting, Excessive diarrhea Patient Instructions Follow-up Provider: Flavio Guevara MD Follow-up with PCP in: 1 week Sue Garcia DO Dec 04, 2016 11:38
[2016-12-04] MEDS ORDERED: AMOX-366 PO (11:40)
--- NOTE | 2016-12-04 13:11 | NUR ---
JESSICA signed with daughter. DARIAN Pérez
--- NOTE | 2016-12-04 13:44 | NUR ---
Social Work-discharge: Data:EMR Reviewed. Pt is on day 6 of hospitalization for sepsis per H&P. Pt is medically stable to discharge home today. PT has cleared pt for home with HH. Pt's daughter is primary caregiver and provides 24/7 care at home. SENDY spoke with Daughter Serena who is agreeable to discharge. SENDY informed Vijay with [facility] of discharge and faxed in F2F and orders for RN,PT,OT, and ST, access given. Pt's daughter aware of [facility]. Daughter to provide transport home today. Discharge information faxed to [facility]. All updated and agreeable to plan. Assessment:Pt who has 24/7 care at home. Plan:Pt to discharge home today via POV. Pt's daughter is [facility] caregiver and provides 24/7 care for pt at home. SENDY faxed F2F and orders into [facility] for RN,OT,PT, and ST. All updated and agreeable to plan. DARIAN Pérez
--- NOTE | 2016-12-04 14:18 | NUR ---
Discharge Pt discharged with daughter to home via private vehicle. Pt's daughter verbalized understanding of discharge and Rx instructions, personal belongings accounted for and left with pt.
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
== END 2016-12-04 14:10 | disposition home health service (06) | DRG 871 ==
LOC: EDBD 08:33 → SED 08:33 → MPC 12:39
PROVIDERS: ADMIT Hospitalist; ATTEND Internal Medicine
PROC: 4A033R1 Measurement of Arterial Saturation, Peripheral, Percutaneous Approach (ICD-10-PCS; principal; 2016-11-28)
DX: A41.9 Sepsis, unspecified organism (principal); J96.01 Acute respiratory failure with hypoxia; J69.0 Pneumonitis due to inhalation of food and vomit; J12.2 Parainfluenza virus pneumonia; N17.9 Acute kidney failure, unspecified; I42.8 Other cardiomyopathies; E85.9 Amyloidosis, unspecified; R65.20 Severe sepsis without septic shock; J10.1 Influenza due to other identified influenza virus with other respiratory manifestations; I25.2 Old myocardial infarction; Z86.73 Personal history of transient ischemic attack (TIA), and cerebral infarction without residual deficits; F17.210 Nicotine dependence, cigarettes, uncomplicated; G89.29 Other chronic pain; Z51.5 Encounter for palliative care; Z66 Do not resuscitate; R74.8 Abnormal levels of other serum enzymes

== ENCOUNTER 2016-12-09 10:11 | Inpatient (IN) | payer MEDICARE, MEDICAID ==
[~2016-12-09] VITALS: Ht 180.3 cm; Wt 60.0 kg
[~2016-12-09 10:11] MED LIST changes: +AMOX-366 PO; -CEFU250T82 PO
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
[2016-12-09 10:33] VITALS: BP 120/57; PULSE 79; O2SAT 84
[2016-12-09] MEDS ORDERED: 0.9% Sodium Chloride 1,000 ML IV ONE ×2 (10:50)
[2016-12-09] MEDS ORDERED: 0.9% Sodium Chloride 1,000 ML IV SCH (10:50)
[2016-12-09 10:53] LABS: APPEARANCE,URINE HAZY (CLEAR,HAZY); COLOR,URINE YELLOW (YELLOW); OCCULT BLOOD,URINE TRACE (NEGATIVE); PH,URINE 6.5 (5.0-8.0); UROBILINOGEN,URINE NORMAL (NORMAL)
[2016-12-09] MEDS ORDERED: cefTRIAXone Inj 2,000 MG in Dextrose 5% Minibag Plus 50 ML IV ONE (11:05)
--- NOTE | 2016-12-09 11:30 | DRSVH ---
PROCEDURE: CT BRAIN WITHOUT CONTRAST ([id number]) INDICATIONS: altered mental status TECHNIQUE: Noncontrast 4.5 mm thick angled axial sections acquired from the foramen magnum to the vertex, with c oronal reformats. COMPARISON: [facility], CT, CT BRAIN WO CON, 11/24/2016, 14:18. FINDINGS: Image quality: Excellent. CSF spaces: Basal cisterns are patent. No extra-axial fluid collections. The ventricles are symmet weston in size and shape. Brain: No intracranial bleeds or masses. There is cerebral volume loss for age, with resultant vent ricular and sulcal prominence. There are periventricular and deep white matter chronic small vessel ischemic changes. Old right frontal infarct is stable compared to prior examination. Old, small, left cerebellar hemisphere lacunar infarct is noted. There is intracranial internal carotid artery and ve rtebral artery atherosclerosis. Skull and face: Calvarium and visualized facial bones appear intact, without suspicious lesions. Sinuses: Mild mucosal thickening noted in the maxillary sinuses bilaterally and scattered throughout the ethmoid air cells bilaterally. The mastoids are clear. IMPRESSION: No acute intracranial disease process. Dictated by: Janelle Salmeron MD, PhD on 12/09/2016 at 11:25 Approved by: Janelle Salmeron MD, PhD on 12/09/2016 at 11:29
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
[2016-12-09 12:16] LABS: BASOPHILS % (AUTO) 0.4 % (0-3); EOSINOPHILS % (AUTO) 0.4 % (0-5); MONOCYTES % (AUTO) 11.6 % (4-12); Mean Corpuscular Hemoglobin 29.3 pg (27.0-35.0); Mean Corpuscular Volume 92.6 fL (81-100); NEUTROPHILS % (AUTO) 70.2 % (40-74); Platelet Count 221 bil/L (150-400)
[2016-12-09 12:51] LABS: Magnesium 2.5 mg/dL (1.6-2.6); TROPONIN T 0.059 ug/L (0.0-0.011)
[2016-12-09] MEDS ORDERED: Alum-Mag Hydrox-Simeth 30 mL Suspension PO PRN ×2 (14:10→14:25)
[2016-12-09] MEDS ORDERED: Ondansetron 2 mg/mL 2 mL Inj IVPUSH PRN ×2 (14:10→14:25)
[2016-12-09] MEDS ORDERED: Polyethylene Glycol (PEG) 17 Gm Powder PO PRN (14:25)
[2016-12-09 14:38] VITALS: BP 144/45; PULSE 62; RESP 13; O2SAT 93
--- NOTE | 2016-12-09 15:01 | NUR ---
[place] [facility] [id number]. Pt has NS infusing, RA. Pt cries out "Help me Lord" No apparent signs of discomfrt. Unable to respond to questions or orient to rm. Call light with in reach.
[2016-12-09 15:09] VITALS: BP 118/54; PULSE 66; RESP 16; O2SAT 91
--- NOTE | 2016-12-09 15:12 | NUR ---
Admit/Med Rec Pt unable to participate in admission questions. Recall used, as pt was just discharged on 12/04/16. Addendum: 12/09/16 at 1517 by CARMEN MONSALVE RN Daughter confirmed on phone that there have been no medication changes since he was discharged home on 12/04/16
[2016-12-09] MEDS: 0.9% Sodium Chloride 1,000 ML IV SCH (16:04)
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
[2016-12-09 20:14] VITALS: BP 173/75; PULSE 60; RESP 16; O2SAT 95
[2016-12-09] MEDS: Amoxicillin-Clav 875-125 mg Tablet PO SCH (20:30)
[2016-12-09] MEDS ORDERED: NUTRITIONAL SUPPLEMENT 113 GM PO SCH (20:30)
[2016-12-10] MEDS: 0.9% Sodium Chloride 1,000 ML IV SCH ×3 (02:27→23:35)
--- NOTE | 2016-12-10 03:22 | NUR ---
Refused HS Medication Pt refused night time medications stating, " Leave me alone, Get out of here, Stop it." Able to calm pt with calm environment and warm blankets. Pt rested through night with no complaints of pain or discomfort. Call light within reach. Will continue to monitor.
[2016-12-10 05:21] VITALS: BP 177/71; PULSE 58; RESP 16; O2SAT 96
[2016-12-10] MEDS: Isosorbide Mononitrate 30 mg ER24 Tablet PO SCH (10:01)
[2016-12-10] MEDS: Amoxicillin-Clav 875-125 mg Tablet PO SCH ×2 (10:05→20:40)
--- NOTE | 2016-12-10 10:33 | NUR ---
Evaluation completed/discharge to nsg Please go to "Notes" then click on "Assessments and Notes" (bottom left corner of screen). Then select appropriate discipline tab on top of screen. no additional PT; up with nsg with FWW and CGA
--- NOTE | 2016-12-10 11:43 | NUR ---
Social Work: Initial Assessment Data: Pt is an 86 y/o male who was admitted for UTI, JAYDEN, AMS. Pt's insurance is [facility] and [facility] and PCP is Flavio Guevara MD. EMR Reviewed. SENDY placed a call to daughter Serena [phone] to discuss discharge planning, SW role explained. Pt resides at home with daughter Serena who provides 24/7 care for pt. Pt uses a fww at baseline and does not drive. Pt has no rodent exterminator care or VA benefits. Pt has history with [facility] and is open with them for RN/PT/OT/ST, pt has been to SNF in [place]. Pt's CHARLES CM is Sh[facility],updated clinicals faxed. Pt received 137 hours a month. Pt's daughter is CHARLES caregiver. SW discussed DPOA/ advanced directive, daughter does not believe this have completed this. Daughter anticipates to take pt home at discharge. SW provided phone number and plan. SW will continue to follow. Assessment: Pt who has 24/7 care. Has CHARLES. Plan: Pt to discharge home with daughter to provide 24/7 care when medically stable with [facility], RN/PT/ST/OT. BOAT AND PLANT UTILITY SUPERVISOR will continue to follow. DARIAN Cortez Addendum: 12/10/16 at 1146 by LETICIA HECK Amended: Links added.
[2016-12-10 14:51] LABS: Mean Corpuscular Hemoglobin 29.6 pg (27.0-35.0); Mean Corpuscular Volume 92.3 fL (81-100)
--- NOTE | 2016-12-10 16:42 | PCM.PNMED ---
Subjective Date of Service Dec 10, 2016 Subjective Patient was seen and examined today. The patient at baseline is demented. There were no acute events overnight as reported by nursing. The patient was in no acute distress. Exam Vital Signs Vital Sign - Last Date Time Temp Pulse Resp B/P Pulse Ox O2 Delivery O2 Flow Rate FiO2 12/10/16 05:21 36.8 58 16 177/71 96 Room Air Intake and Output 12/09/16 12/09/16 12/10/16 Cumulative From/Thru 15:00 23:00 07:00 12/09/16 10:33 - 12/10/16 06:14 Intake Total 2000 ml 0 ml 0 ml 2000 ml Balance 2000 ml 0 ml 0 ml 2000 ml Intake Oral 0 ml 0 ml 0 ml IV Total 2000 ml 2000 ml # Voids 1 3 4 # Bowel Movements 0 0 Exam Physical Exam: GEN: Patient was awake, HEENT: Neck soft supple, trachea midline, nomocephalic/atraumatic CV: +S1/S2, RRR, systolic murmurs auscultated Respiratory: Coarse breath sounds GI: +bowel sounds x4, soft, compressible, non TTP EXT: no c/c/e Psych: mood and affect were agitated but at baseline IVs and Medications Medications Reviewed: Medications were reviewed in detail Medications Current Medications Sodium Chloride 1,000 ml @ 100 mls/hr Q10H IV Last administered on 12/09/16 11: 45; Admin Dose 100 MLS/HR; Start 12/09/16 at 10:50; Stop 12/09/16 at 14:40; Status DC Sodium Chloride 1,000 ml @ 100 mls/hr Q10H IV Last administered on 12/10/16 12: 09; Admin Dose 100 MLS/HR; Start 12/09/16 at 14:10 Al Hydrox/Mg Hydrox/Simethicone 30 ml Q6 PRN PO; Start 12/09/16 at 14:10; Status Cancel Ondansetron HCl Dose range: 4 mg to 8 mg Q4H PRN IVPUSH; Start 12/09/16 at 14:10 ; Status Cancel Acetaminophen 975 mg Q6H PRN PO Last administered on 12/09/16 20:38; Admin Dose 975 MG; Start 12/09/16 at 14:10 Al Hydrox/Mg Hydrox/Simethicone 30 ml Q6H PRN PO; Start 12/09/16 at 14:25 Ondansetron HCl 4 to 8 mg Q4H PRN IVPUSH; Start 12/09/16 at 14:25 Senna 17.2 mg BID PRN PO; Start 12/09/16 at 14:25 Polyethylene Glycol 17 gm DAILY PRN PO; Start 12/09/16 at 14:25 Amlodipine Besylate 5 mg DAILY PO Last administered on 12/09/16 20:07; Admin Dose 5 MG; Start 12/09/16 at 17:10; Stop 12/10/16 at 08:12; Status DC Amoxicillin/ Clavulanate Potassium 1 tab BID PO Last administered on 12/10/16 10 :05; Admin Dose 1 TAB; Start 12/09/16 at 20:30 Carvedilol 3.125 mg BID PO Last administered on 12/10/16 10:02; Admin Dose 3.125 MG; Start 12/09/16 at 20:30 Hydralazine HCl 50 mg TID PO Last administered on 12/10/16 10:00; Admin Dose 50 MG; Start 12/09/16 at 20:30 Isosorbide Mononitrate 30 mg MORNING PO Last administered on 12/10/16 10:01; Admin Dose 30 MG; Start 12/10/16 at 08:30 Trazodone HCl 100 mg HS PO; Start 12/09/16 at 21:00 Atorvastatin Calcium 80 mg HS PO; Start 12/09/16 at 21:00 Non-Formulary Medication 113 gm TID PO; Start 12/09/16 at 20:30; Status UNV Oxycodone HCl 10 mg MORNING PRN PO; Start 12/10/16 at 08:30 Oxycodone HCl 20 mg DAILYWL PRN PO; Start 12/09/16 at 17:25 Oxycodone HCl 20 mg QPM PRN PO Last administered on 12/09/16 20:38; Admin Dose 20 MG; Start 12/09/16 at 17:10 Amlodipine Besylate 10 mg DAILY PO; Start 12/10/16 at 08:30; Stop 12/10/16 at 08: 35; Status DC Amlodipine Besylate 5 mg DAILY PO; Start 12/11/16 at 08:30 Lab and Diagnostics Result Diagram: 12/09/16 1203 12/09/16 1203 Assessment & Plan 86 year old male with a history of chronic pain, HTN, possible Stroke, and possible [place], and urinary incontinence Altered mental status -Urine culture showed only mild trace leuk esterases will continue outpatient course of Augmentin until complete -Chest x-ray shows that his pneumonia has resolved -Blood cultures are negative 24 hours -Continuous pulse ox -Continue to monitor patient's oxygen levels Acute kidney injury -Patient's creatinine is 2.12 today patient's baseline creatinine is 1.4 - Continue to hydrate the patient -Today's labs are pending Hypernatremia may be secondary to dehydration -Sodium elevated at 155 -We will continue to fluid resuscitate the patient -Today's labs are pending Elevated troponins -Troponins are elevated at 0.059 however this is better than what they have been recently. This is most likely a chronic troponin leak Code Status: DNR/DNI Disposition: Patient has altered mental status and at this point unsure as to where the altered mental status is coming from. Report from the emergency room stated that the family felt that the patient was short of breath and upon admission his oxygen saturation was 84. The patient's altered mental status could be from hypoxia. The patient does have a history of descending into the 80s while sleeping however he self corrects quickly and spontaneously. By monitoring the patient's oxygen saturations we can get more of a clear picture of what the patient's oxygen saturations are doing as he may qualify for home oxygen with better documentation as to whether the patient really is descending. The patient's altered mental status could also be further progression of the patient's current dementia and if this is the case then the patient's family should be informed. We will continue to monitor for any further infectious processes. We will ask palliative care to once again to participate in the patient's goals of care. I spoke with the daughter today who understands that this may be end-of-life and or advancement of dementia for her father. The patient does seem more open to possible hospice care/comfort care. We will have palliative care follow-up with the patient. Time spent Greater than 35 minutes Sue Garcia DO Dec 10, 2016 13:29
[2016-12-10 16:58] VITALS: BP 181/82; PULSE 55; RESP 14; O2SAT 91
--- NOTE | 2016-12-10 18:13 | NUR ---
Behavior - medications/treatment Reported refusal of last night medications and refusal for LAB draw. Pt morning BP 177/71, refused to take medications. MD reported. MD at bedside, encouraged pt to take medications - pt willing to comply. Medications in chocolate pudding, can only tolerate a few bites then responds he has had enough. At bedside for all treatment, using a comforting voice and encouragement to comply with care. LAB draw reattempted, unable to obtain. IV therapy called for sample, obtained and sent to LAB. Pt repeatedly calls out "Help me Leonides!" and "Leave me alone" comments throughout shift with brief periods of sleep. Inquired about pain, pt reports no pain. FELDT pain scale when sleeping is 0. Reporting to next shift.
[2016-12-11 05:30] VITALS: BP 145/78; PULSE 62; RESP 15; O2SAT 92
[2016-12-11 05:37] LABS: Mean Corpuscular Hemoglobin 30.2 pg (27.0-35.0); Mean Corpuscular Volume 91.8 fL (81-100)
--- NOTE | 2016-12-11 05:52 | NUR ---
Uneventful Night: Pt rested quietly through the night. CPOX HS, sats 90-93%. No s/sx of pain or discomfort. Cooperative with care.
[2016-12-11] MEDS: Dextrose 5% 0.45% NaCl 1,000 ML IV SCH ×2 (08:17→21:36)
[2016-12-11] MEDS: Amoxicillin-Clav 875-125 mg Tablet PO SCH ×3 (08:25→21:38)
[2016-12-11] MEDS: Isosorbide Mononitrate 30 mg ER24 Tablet PO SCH (08:25)
[2016-12-11 08:33] VITALS: BP 168/82; PULSE 63; RESP 14; O2SAT 93
--- NOTE | 2016-12-11 14:00 | PCM.PNMED ---
Subjective Date of Service Dec 11, 2016 Subjective denies any pain or discomfort Exam Vital Signs Vital Sign - Last Date Time Temp Pulse Resp B/P Pulse Ox O2 Delivery O2 Flow Rate FiO2 12/11/16 08:33 36.4 63 14 168/82 93 Room Air Intake and Output 12/10/16 12/10/16 12/11/16 Cumulative From/Thru 15:00 23:00 07:00 12/09/16 10:33 - 12/11/16 06:41 Intake Total 0 ml 2235 ml 4235 ml Balance 0 ml 2235 ml 4235 ml Intake Oral 0 ml 0 ml 0 ml IV Total 2235 ml 4235 ml # Voids 2 3 9 # Bowel Movements 0 0 0 General: Alert, Cooperative, No Acute Distress, Other (oriented to place only) Eyes: Scleral Anicteric Mouth: Mucous Membr Moist/[place] Neck: Supple Chest & Lungs: Chest Wall Normal, Coarse breath sounds (mild upper respiratory) Cardiovascular: Regular Rate/Rhythm Abdomen: Non-tender, Non-distended, Normoactive bowel tones, Soft Extremities: No cyanosis/clubbing/edma bilat Neurological: Grossly Neurologically Intact IVs and Medications Medications Reviewed: Medications were reviewed in detail Lab and Diagnostics Result Diagram: 12/11/1651412/11/16514 Assessment & Plan 86-year-old male with a history of hypertension, possible [place], possible stroke, brought in with a complaint of worsening cough and shortness of breath. It is also stated that the patient has altered mental status and has been declining over the last few weeks # Reported cough and SOB on admission. seems to be improving - check respiratory PCR to r/o viral infection # Altered mental status, ? acute encephalopathy vs acute exacerbation of dementia. poa. improving - r/o viral infection as noted above - c/w supportive care # Acute kidney injury on CKD. poa. - improving with IVF - c/w IVF and f/u BMP # Acute hypernatremia. poa. persisting - change IV from NS to D5 1/2NS and f/u # Mildly elevated troponin. chronic. poa. - denies any CP. - no further cardiac workup at this time # Goals of care - palliative care consult in am Dispo: 2-3 days Time spent 30 min Jose Guzman Dec 11, 2016 14:00
--- NOTE | 2016-12-11 14:05 | NUR ---
Social Work: Continued d/c planning Data: Pt is on day 2 of hospitalization. EMR reviewed. Pt discussed in rounds. GEAR DESIGN ENGINEER heard from [facility] that pt has no goals of care to be met and that they cannot take pt back at d/c. GEAR DESIGN ENGINEER referred pt to [facility] to see if they are able to work with pt, access given. GEAR DESIGN ENGINEER spoke with Pal Malik who states a sales account manager will look it over on 12/12/16 and they will get back to GEAR DESIGN ENGINEER. states that he is going to request Palliative meet with pt and family regarding hospice, as HH may not be an option depending on if [facility] can work with pt. GEAR DESIGN ENGINEER will continue to follow. Assessment: Pt who is independent at baseline. Plan: Pt will d/c home via POV with daughter when medically stable, [facility] referred, F2F in GEAR DESIGN ENGINEER folder. to see if Palliative can assist with goals of care conversation, possible hospice. GEAR DESIGN ENGINEER will continue to follow. DARIAN Cortez
--- NOTE | 2016-12-11 14:05 | NUR ---
JESSICA JESSICA given to pt's daughter over phone. DARIAN Cortez
[2016-12-11 17:11] VITALS: BP 169/79; PULSE 73; RESP 16; O2SAT 94
--- NOTE | 2016-12-11 18:16 | NUR ---
Mentation/behaviors patient is alert to self with confusion. patient has history of dementia. Elevated Systolic 169/79. asher paged doctor and awaiting response for new orders. Couple times calling outs this AM and improved with redirection. lung sounds mild wheezes with no sign and symptoms of respiratory distress. orders received for nasopharyngeal swab and sent to the lab, awaiting results. daughter at bed side. palliative care tomorrow AM. bed alarm on for safety. no sign and symptoms of pain or discomfort noted. continue to monitor vital signs, pain, respiratory/lung assessment and safety .
[2016-12-11 21:33] VITALS: BP 164/77; PULSE 64; RESP 16; O2SAT 91
[2016-12-12 05:01] VITALS: BP 147/79; PULSE 65; O2SAT 94
--- NOTE | 2016-12-12 05:49 | NUR ---
Shift Note Uneventful night. Pt A&OX1. Denies pain. No SOB- O2 94% on RA. Slept most of the night. Compliant with care.
[2016-12-12] MEDS: Isosorbide Mononitrate 30 mg ER24 Tablet PO SCH (09:11)
[2016-12-12] MEDS: Amoxicillin-Clav 875-125 mg Tablet PO SCH ×2 (09:11→20:48)
[2016-12-12] MEDS: Dextrose 5% 0.45% NaCl 1,000 ML IV SCH ×2 (10:24→22:52)
--- NOTE | 2016-12-12 10:36 | NUR ---
Palliative Care Palliative Care received over from Dr Garcia 12/10/16 to assist with goals of care. Patient is an 86 year old man with history of hypertension, possible PR and possible stroke. He presented with worsening cough, shortness of breath and was readmitted 12/09/16. Patient has been seen by the Palliative Care Team during all recent admissions (11/20/16-11/25/16, 11/28/16-12/04/16, 12/09/16-present). Patient lives with his daughter. Serena Brownum (daughter) [phone] Palliative Care to follow. Freda Jamil
--- NOTE | 2016-12-12 12:08 | NUR ---
Social Work-continued d/c planning: Data:EMR reviewed. Pt is on day 3 of hospitalization for UTI per H&P. Pt is not medically stable, anticipate several more days. PT has cleared pt for home with services. SENDY spoke with Vamsi Pinto [phone] with [facility] who confirms they will be able to take pt on service at discharge. Referral made for RN,PT, and OT, access given. PT's daughter provides 24/7 care at home. Palliative care is pending. F2F in folder. SW will continue to follow. Assessment:Pt who would has 24/7 care at home. Plan:Pt to discharge home with daughter when medically stable via POV. Pt's daughter provides 24/7 care for pt at Home. Referral made to [facility] for RN,PT, and OT. Palliative care is pending. F2F in folder. SENDY will continue to follow. DARIAN Pérez
[2016-12-12 13:49] VITALS: BP 162/68; PULSE 65; RESP 16; O2SAT 94
--- NOTE | 2016-12-12 14:42 | PCM.PNMED ---
Subjective Date of Service Dec 12, 2016 Subjective denies any pain or discomfort Exam Vital Signs Vital Sign - Last Date Time Temp Pulse Resp B/P Pulse Ox O2 Delivery O2 Flow Rate FiO2 12/12/16 13:49 36.6 65 16 162/68 94 Room Air Intake and Output 12/11/16 12/11/16 12/12/16 Cumulative From/Thru 15:00 23:00 07:00 12/09/16 10:33 - 12/12/16 05:21 Intake Total 400 ml 830 ml 5465 ml Balance 400 ml 830 ml 5465 ml Intake Oral 400 ml 400 ml IV Total 830 ml 5065 ml # Voids 3 12 # Bowel Movements 0 0 Exam General: Alert, Cooperative, No Acute Distress Eyes: Scleral Anicteric Mouth: Mucous Membr Moist/[place] Neck: Supple Chest & Lungs: Chest Wall Normal, Coarse breath sounds (mild upper respiratory ) bilat Cardiovascular: Regular Rate/Rhythm Abdomen: Non-tender, Non-distended, Normoactive bowel tones, Soft Extremities: No cyanosis/clubbing/edema bilat Neurological: Grossly Neurologically Intact IVs and Medications Medications Reviewed: Medications were reviewed in detail Lab and Diagnostics Result Diagram: 12/11/16 0515 12/12/16 0534 Assessment & Plan 86-year-old male with a history of hypertension, possible [place], possible stroke, brought in with a complaint of worsening cough and shortness of breath. It is also stated that the patient has altered mental status and has been declining over the last few weeks # Reported cough and SOB on admission. seems to be improving - respiratory PCR negative # Altered mental status, ? acute encephalopathy vs acute exacerbation of dementia. poa. improving - viral infection ruled out - consider MRI brain - c/w supportive care # Acute kidney injury on CKD. poa. - improving with IVF - c/w IVF and f/u BMP # Acute hypernatremia. poa. improving - c/w changed IVF from NS to D5 1/2NS and f/u # Mildly elevated troponin. chronic. poa. - denies any CP. - no further cardiac workup at this time # Goals of care - appreciate palliative care consult. will f/u w/ recs Dispo: 1-2 days pending goals of care Resuscitation Status: DNR/DNI:Do Not Resuscitate/Intubate Time spent 25 min Jose Guzmanb 6, 2017 14:42
--- NOTE | 2016-12-12 16:53 | NUR ---
NUTRITION ASSESSMENT: ASSESS: 86 yo Male admitted for UTI, JAYDEN and altered mental status. Pt diet has been advanced to pureed with pt eating bites-25% of meals. On previous admit, pt was on pureed, nectar thick diet. PMHX: Chronic pain, HTN, poss CVA, poss RI LABS: Reviewed. Na 145, Cr 1.62, Glu 118, Ca 7.9, Alb 3.1. MEDS: Reviewed. GI: No BM reported. CURRENT WTS: 58.9 kg. Previous Admit wt: 64.6 kg. Wt changes: 9% BW lost in < 1 month, severe wt loss. DIET: Pureed. PO bites - 25%. EST. NEEDS: Kcals:9738-2210 kcal/day (30-35 kcal/kg BW) Pro: 70-85 g/day (1.0-1.2 g/kg BW) NUTRITION DIAGNOSIS: 1.) Inadequate oral intake related to chewing / swallowing difficulties as evidenced by po intake of bites - 25% and recent wt loss of 9% in less than 1 month. 2.) Chewing / swallowing difficulties related to cognitive impairment as evidenced by current need for mechanically altered diet texture. NUTRITION INTERVENTION: 1.) Will add nectar thick ensure all trays as pt was previous on nectar thick liquids. 2.) Recommend ST eval to better assess for appropriate liquid texture on diet. MONITOR / EVAL: PO intake, weight, labs, GI, nutrition status. Will continue to monitor per high nutrition risk guidelines.
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
--- NOTE | 2016-12-12 17:49 | NUR ---
Uneventful Pt slept most of the day, when offered meds, pt refused, was able to get two bites of crushed meds in pudding in today. Palliative consulted, pending note and plan. Pt resting comfortably in bed with call light within reach, bed low and locked, intentional rounding.
[2016-12-12 20:24] VITALS: BP 171/77; PULSE 60; RESP 16; O2SAT 93
[2016-12-13 04:50] VITALS: BP 155/76; PULSE 63; RESP 16; O2SAT 96
--- NOTE | 2016-12-13 08:43 | NUR ---
JESSICA: Patient unable to accept JESSICA asked NECKTIES PAINTER to follow up via phone with daughter.
--- NOTE | 2016-12-13 09:00 | NUR ---
JESSICA verbally signed with Daughter via phone. DARIAN Pérez
[2016-12-13] MEDS: Amoxicillin-Clav 875-125 mg Tablet PO SCH (09:07)
[2016-12-13] MEDS: Isosorbide Mononitrate 30 mg ER24 Tablet PO SCH (09:07)
[2016-12-13] MEDS: Dextrose 5% 0.45% NaCl 1,000 ML IV SCH (09:18)
--- NOTE | 2016-12-13 10:03 | NUR ---
Social Work-readiness for discharge: Data:EMR Reviewed. Pt is on day 4 of hospitalization for UTI per H&P. Pt is not medically stable, anticipate later today or tomorrow. SW placed a call to daughter Serena to review discharge plan. SW explained that [facility] agreed [facility] pt on and referral has been made for RN,PT,ST, and OT. Palliative care met with pt and daughter wants to continue with treatment. Daughter is CHARLES caregiver. Daughter agreeable to plan and will provide 24/7 care for pt at home. Daughter to provide transport home at discharge. F2F in folder. SW will continue to follow. Assessment:Pt who would benefit from 24/7 care and HH. Plan:Pt to discharge home with 24/7 care from daughter via POV. Referral made to [facility] for RN,PT,OT, and ST, access given. F2F in folder. SW will continue to follow. DARIAN Pérez
--- NOTE | 2016-12-13 11:09 | PCM.PALLBR ---
Palliative Care Recommendation This is a 86 yr old man with multiple recent admission for UTI, pneumonia and altered mental status. Palliative Care met with the patient at bedside--see exam below. Dtr Serena was unable to come in but reached by phone this morning and confirmed that she had signed a POLST in Nov [address] Dunn, Palliative Care. Neelima perceives her father as finally returning to baseline after being mostly sick for several weeks and not recovering between hospitalizations. She is aware of his weight loss this month but feels this is more related to illness than to dementia. See Dr. Dunn's notes from prior admission. The daughter continues to feel that he could benefit from home health services to strengthen, that they never got a chance to even try it because he was " still sick" when they came to see him; they ended up calling 911 to readmit him. She is aware of hospice and how it might help her if he is not able to strengthen and/or if he states he is not interested in eating or strengthening. She is willing to have home health refer him to hospice for obvious decline, but for the time being will continue to want to treat treatable conditions. Summary of palliative recommendations: -Symptom management (Pain/other) PAIN: mostly chronic, current measures effective Delirium/Dementia: Most glaring sign of decline is weight loss. The patient is oriented to self and knows he is in the hospital, but not what town the hospital is in. He did know (or guessed?) that it was December but thought it was 1931 and did not know who was the President. --Continue to monitor especially regarding weight. -DPOA/Advanced Directives/POLST --DNR/DNI, limited interventions to include IVF and ABtx. no tube feeding --POLST signed by daughter and Dr. Dunn on Dec 01, 2016 --Daughter states that POLST still reflects her wishes for her father. -Family/emotional support --dtr aware of support via palliative care and hospice -Disposition: --family prefers home with home health --refer to hospice if declines. Problems: End of Life Preferences comfort if at end of life Goals of Care treat treatable conditions Disposition home with dtr. home health as long as able to make progress and wants to participate Resuscitation Status Resuscitation Status: DNR/DNI:Do Not Resuscitate/Intubate POLST Updates/Changes Previous POLST?: Yes Antibiotics: Use ABX if can Prolong Life Artificially Admin Nutrition: No Artifical Nutrition by Tube POLST Discussed with: Health Care Agent ([facility]PO[facility]) (daughter Serena) POLST Review Outcome: No Change . Advanced Care Planning Address: POLST Pain: None Total time 35 minutes; >50% face to face with patient and/or family, providing counselling regarding plans and recommendations, and in care coordination with his/her medical teams. I also spent an additional 15 minutes counseling for advanced care planning with the patient/the patients family/the surrogate decision maker. Palliative Brief Note Date of Service Dec 13, 2016 . History of Present Illness: 86 year old male with a history of chronic pain, HTN , possible Stroke, and possible [place], and urinary incontinence. This is his 3rd admission in less than a month. Admissions in November for AMS, UTI, pneumonia; this one for worsening cough and shortness of breath. It is also stated that the patient has continued altered mental status and has been declining over the last few weeks despite previous admissions/ discharges on November 25 and then also after a six-day stay on December 04 for both altered mental status, UTI, sepsis from pneumonia. Palliative care has been consulted and followed this patient on a previous admission, during which goals were clarified as DNR/DNI, limited interventions for IVF and antibiotics but no tube feedings. At this time, the patient appears to be returning to baseline but issues regarding home support are in question as the home health team has stated he was not making progress toward goals. Palliative Care is asked to follow-up with the dtr regarding possible hospice vs home health needs. Per Palliative Care discussion 12/12 with dtr, she wants her father to go home with home health and will ask HH agency to refer to hospice if father declines further. Hospital Course: Today is Hospital Day 5. Pt admitted for SOB and negative for viral infection, but did have JAYDEN (baseline cr is 1.4, on admit 2.1) and hypernatremia (151 on admit) which are gradually improving with inpatient IVFs management. His mental status is now at baseline (he can answer simple questions ). Exam: General: Alert, Oriented, Person, Place HEENT: Atraumatic, PERRLA Lungs: Diminished Abdomen: Soft Neuro: Arousable Extremities: Warm, No Edema Labs: Item Value Date Time Sodium Level 141 mEq/L 12/13/16729 Potassium Level 5.3 mEq/L H 12/13/16729 Chloride Level 111 mEq/L H 12/13/16729 Creatinine 1.30 mg/dL H 12/13/16729 Blood Urea Nitrogen 17 mg/dL 12/13/16729 Glucose Level 105 mg/dL H 12/13/16729 Calcium Level 7.7 mg/dL L 12/13/16729 Kristina Bass MD Dec 13, 2016 11:09 Blood Urea Nitrogen 17 mg/dL 12/13/16729 Glucose Level 105 mg/dL H 12/13/16729 Calcium Level 7.7 mg/dL L 12/13/16729 Kristina Bass MD Dec 13, 2016 11:09
--- NOTE | 2016-12-13 11:14 | PCM.DIMED ---
Discharge Instructions Date of Service Dec 13, 2016 Dates of Hospitalization Dec 09, 2016 at 13:34 Discharge Diagnosis Discharge Diagnosis # Reported cough and shortness of breath on admission likely due to recent pneumonia. Resolved. # Altered mental status present on admission possibly acute encephalopathy vs acute exacerbation of dementia. Improved # Acute kidney injury on top of chronic kidney disease, present on admission. Resolved and back to baseline. # Acute hypernatremia. present on admission. Resolved. # Acute dehydration. present on admission. Resolved. # Mildly elevated troponin. chronic. stable. Diet Heart Healthy Activity Home Health Phyical Therapy Call your provider Fever or Chills, Shortness of breath, Bleeding, Chest pain, Excessive diarrhea Patient Instructions Seek immediate medical attention if any new or worsening signs or symptoms occur. Follow-up plan 1. Followup with primary care provider in 3-7 days Follow-up Provider: Flavio Guevara MD, Masoud Dec 13, 2016 11:14
--- NOTE | 2016-12-13 13:41 | NUR ---
Social Work-discharge: data:EMR Reviewed. Pt is on day 4 of hospitalization for UTI per H&P. Pt is medically stable to discharge home today. PT has cleared pt for home with HH. SENDY informed Vamsi Reece Arie Gonzalez liaison [phone] of discharge and provided him with orders for RN,PT, OT, and ST. SW updated pt's daughter Serena of discharge and she will provide transport home today. Pt's daughter provides 24/7 care for pt at home. Pt's CM aware of discharge. All updated and agreeable to plan. Assessment:Pt who has 24/7 care at home. Plan:Pt to discharge home today via POV. Pt's daughter provides 24/7 caer at home. F2F and orders given to [facility] For RN,OT,PT, and ST. All updated and agreeable to plan. Thalia Hanna,SLEEP LAB TECHNICIAN
--- NOTE | 2016-12-13 14:39 | PCM.DC.MED ---
Discharge Summary Date of Service Dec 13, 2016 Dates of Hospitalization Date of Hospital Admission Dec 09, 2016 at 13:34 Date of Discharge: Dec 13, 2016 Providers: Admitting Physician: Sue Garcia DO Primary Care Physician: Flavio Guevara MD Attending Physician: Sue Garcia DO Diagnosis at Time of Discharge Diagnosis at Time of Discharge # Reported cough and shortness of breath on admission likely due to recent pneumonia. Resolved. # Altered mental status present on admission possibly acute encephalopathy vs acute exacerbation of dementia. Improved # Acute kidney injury on top of chronic kidney disease, present on admission. Resolved and back to baseline. # Acute hypernatremia. present on admission. Resolved. # Acute dehydration. present on admission. Resolved. # Mildly elevated troponin. chronic. stable. Consultations 1. Palliative care Procedures XRay, CTs & MRIs Date of Service: 12/09/16 1017 PROCEDURE: X-RAY CHEST ONE VIEW, PORTABLE ([id number]) IMPRESSION: Resolved pneumonia. No acute cardiopulmonary process identified on the current exam. Dictated by: Caio Marc [facility] Interpreted: Janelle Salmeron MD on 12/09/2016 at 11:55 Transcribed by: SAUL on 12/09/2016 at 11:57 Approved by: Janelle Salmeron MD, PhD on 12/09/2016 at 16:45 Date of Service: 12/09/16 1050 PROCEDURE: CT BRAIN WITHOUT CONTRAST ([id number]) IMPRESSION: No acute intracranial disease process. Dictated by: Janelle Salmeron MD, PhD on 12/09/2016 at 11:25 Approved by: Janelle Salmeron MD, PhD on 12/09/2016 at 11:29 Brief History 86-year-old male with a history of hypertension, possible [place], possible stroke, brought in with a complaint of worsening cough and shortness of breath. It is also stated that the patient has altered mental status and has been declining over the last few weeks Hospital Course # Reported cough and SOB on admission. seems improved - respiratory PCR negative - treated for recent pneumonia and finished course of Abx during this hospital # Altered mental status, ? acute encephalopathy vs acute exacerbation of dementia. poa. improving - viral infection ruled out - c/w supportive care # Acute kidney injury on CKD. poa. - resolved with IVF # Acute hypernatremia. poa. - resolved # Mildly elevated troponin. chronic. poa. - denies any CP. - no further cardiac workup at this time # Acute dehydration. present on admission. Resolved. # Goals of care - appreciate palliative care consult. Code status DNR/DNI by day of d/c lungs CTA bilat. abdomen soft, nt, nd, +bs Exam Vital Signs (Last) Date Time Temp Pulse Resp B/P Pulse Ox O2 Delivery O2 Flow Rate FiO2 12/13/16 04:50 36.6 63 16 155/76 96 Room Air Test 12/09/16 10:43 12/09/16 12:03 12/10/16 16:30 12/11/16 05:15 Urine Color Yellow (YELLOW) Urine Appearance Hazy (CLEAR,HAZY) Urine pH 6.5 (5.0-8.0) Urine Specific [place] 1.020 (1.003-1.035) Urine Protein 30mg/dL (NEG,TRACE) Urine Glucose (UA) Negativemg/dL (NEGATIVE) Urine Ketones Tracemg/dL (NEGATIVE) Urine Occult Blood Trace (NEGATIVE) Urine Nitrite Negative (NEGATIVE) Urine Bilirubin Negative (NEGATIVE) Urine Urobilinogen Normalmg/dL (NORMAL) Urine Leukocyte Esterase Trace (NEGATIVE) Urine RBC 11-50/hpf (0-2) Urine WBC 11-50/hpf (0-5) Urine Epithelial Cells Occasional/hpf (NONE-MOD) Urine Crystals None seen (NONE SEEN) Urine Bacteria Few/hpf (NONE-FEW) Urine Hyaline Casts Occasional/lpf (NONE) Urine Granular Casts None seen (NONE SEEN) Urine Waxy Casts None seen (NONE SEEN) Urine Red Blood Cell Casts None seen (NONE SEEN) Urine White Blood Cell Casts None seen (NONE SEEN) Urine Mucus Present (None Seen) Urine Trichomonas Present (NONE SEEN) Urine Yeast None (NONE SEEN) Urinalysis Comment None Urine Culture Reflexed Indicated Neutrophils (%) (Auto) 70.2% (40-74) Lymphocytes (%) (Auto) 17.2% (14-46) Monocytes (%) (Auto) 11.6% (4-12) Eosinophils (%) (Auto) 0.4% (0-5) Basophils (%) (Auto) 0.4% (0-3) Lactic Acid Level 1.5mmol/L (0.4-2.0) Magnesium Level 2.5mg/dL (1.6-2.6) Total Creatine Kinase 141U/L (21-232) Troponin T 0.059ug/L (0.0-0.011) Total Bilirubin 0.7mg/dL (0.0-1.2) Aspartate Amino Transf (AST/SGOT) 40U/L (0-50) Alanine Aminotransferase (ALT/SGPT) 22U/L (0-44) Alkaline Phosphatase 64U/L (25-160) Total Protein 7.5g/dL (6.4-8.4) Albumin 3.1g/dL (3.4-5.0) White Blood Count 5.8th/mm3 (3.8-10.1) Red Blood Count 4.27mil/mm3 (4.40-5.80) Hemoglobin 12.9g/dL (13.8-17.2) Hematocrit 39.2% (41.0-50.0) Mean Corpuscular Volume 91.8fL (81-100) Mean Corpuscular Hemoglobin 30.2pg (27.0-35.0) Mean Corpuscular Hemoglobin Concent 32.9% (32.0-37.0) Red Cell Distribution Width 15.1% (12.3-15.4) Platelet Count 210bil/L (150-400) Test 12/13/16 07:30 Sodium Level 141mEq/L (134-144) Potassium Level 5.3mEq/L (3.5-5.2) Chloride Level 111mEq/L (97-108) Carbon Dioxide Level 20mmol/L (18-29) Blood Urea Nitrogen 17mg/dL (8-27) Creatinine 1.30mg/dL (0.76-1.27) Estimat Glomerular Filtration Rate 56mL/min (>59) Glucose Level 105mg/dL (60-99) Calcium Level 7.7mg/dL (8.5-10.1) Discharge Medications Discharge Medications Amlodipine (Amlodipine) 5 Mg Tablet 5 MG PO DAILY (Reported) Atorvastatin Calcium (Atorvastatin Calcium) 80 Mg Tablet 80 MG PO HS (Reported) Carvedilol (Carvedilol) 3.125 Mg Tablet 3.125 MG PO BID (Reported) Hydralazine (Hydralazine) 50 Mg Tablet 50 MG PO TID (Reported) Isosorbide MN ER (Isosorbide MN ER) 30 Mg Tab.er.24h 30 MG PO MORNING (Reported ) Nutritional Supplement (Ensure) 113 Gm Pudding 113 GM PO TID (Reported) Trazodone (Trazodone) 100 Mg Tablet 100 MG PO HS (Reported) As needed oxyCODONE (oxyCODONE) 10 Mg Tablet 10 MG PO MORNING PRN PRN For Pain (Reported) oxyCODONE (oxyCODONE) 20 Mg Tablet 20 MG PO DAILYWL PRN PRN For Pain (Reported) oxyCODONE (oxyCODONE) 20 Mg Tablet 20 MG PO QPM PRN PRN For Pain (Reported) Followup Plan Disposition: Home with home health Follow-up plan 1. Followup with primary care provider in 3-7 days Discharge Diet: Heart Healthy Discharge Activity: Home Health Phyical Therapy Patient Instructions Seek immediate medical attention if any new or worsening signs or symptoms occur. Follow-up Provider: Flavio Guevara MD Time spent 35 min copies to: Flavio Guevara MD, Masoud Dec 13, 2016 14:39
--- NOTE | 2016-12-13 14:48 | NUR ---
DISCHARGE Pt discharged this afternoon at 1445, accompanied off unit by HAM STRINGER and daughter. Pt alert, responds appropriately to name. He req 2 person max assist from bed to w/c, per dtr this is baseline. On RA. Denies any pain/discomfort and in no apparent distress. IV's dc'd intact. All belongings returned. Discussed discharge paperwork with dtr who reports understanding.
--- NOTE | 2017-01-05 11:25 | NUR ---
Palliative care note D/A: Phone call to pt dtr Serena to check on progress post dc ). She notes he is doing much better and eating well. He walks with PT from the bedroom to the living room. His talking/communication is improving and more understandable. He is now eating solid food and pockets food at times. Serena sits monitors him at mealtimes and coaches him to swallow or assists him to spit it out when he is unable to swallow. She was very appreciative of the phone call. P: No further need for PC to follow. Tasha MITCHELL, CCM
== END 2016-12-13 14:47 | disposition home health service (06) | DRG 193 ==
LOC: SED 10:11 → EDBD 10:11 → MPC 13:34
PROVIDERS: ADMIT Neuromusculoskeletal Medicine & OMM; ATTEND Neuromusculoskeletal Medicine & OMM
DX: J18.9 Pneumonia, unspecified organism (principal); G93.40 Encephalopathy, unspecified; N39.0 Urinary tract infection, site not specified; N17.9 Acute kidney failure, unspecified; E87.0 Hyperosmolality and hypernatremia; F11.20 Opioid dependence, uncomplicated; E86.0 Dehydration; I10 Essential (primary) hypertension; G89.29 Other chronic pain; F17.210 Nicotine dependence, cigarettes, uncomplicated; Z66 Do not resuscitate

== ENCOUNTER 2017-01-26 09:03 | Inpatient (IN) | payer MEDICARE, MEDICAID ==
[2017-01-26] VITALS (14 sets, daily range): BP systolic 162–206; BP diastolic 63–106; PULSE 58–111; RESP 12–30; O2SAT 93–100
[~2017-01-26] VITALS: Ht 177.8 cm; Wt 60.7 kg
[~2017-01-26 09:03] MED LIST changes: -AMOX-366 PO
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
[2017-01-26] MEDS ORDERED: 0.9% Sodium Chloride 1,000 ML IV ONE (09:17)
--- NOTE | 2017-01-26 09:30 | ABG ---
DateTimeAnalyzed 09:27:00 -_ pH ____7.301 - pCO2 ___54.4__ -mmHg pO2 ___25.5__ -mmHg HCO3- ___26.0__ -mmol/L ABE ___-0.8__ -mmol/L tHb ___13.6__ -g/dL O2Hb ___38.5__ -% COHb ____1.7__ -% MetHb ____1.1__ -% sO2 ___39.6__ -% FIO2 ___21.0__ -% Drawn By as - Date/Time Notified____ 09:29:00 -_ Notified By ams - Notified Whom dr [facility] - B 759 -mmHg tO2 ____7.4__ -Vol% Trey test N/A -
[2017-01-26 09:32] LABS: BASOPHILS % (AUTO) 0.4 % (0-3); EOSINOPHILS % (AUTO) 1.6 % (0-5); MONOCYTES % (AUTO) 9.7 % (4-12); Mean Corpuscular Hemoglobin 29.6 pg (27.0-35.0); Mean Corpuscular Volume 92.7 fL (81-100); NEUTROPHILS % (AUTO) 30.2 % (40-74); Platelet Count 167 bil/L (150-400)
[2017-01-26] MEDS ORDERED: 0.9% Sodium Chloride 1,000 ML IV SCH (10:00)
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
--- NOTE | 2017-01-26 10:13 | DRSVH ---
PROCEDURE: CT BRAIN WITHOUT CONTRAST ([id number]) INDICATIONS: Acute mental status changes. TECHNIQUE: Noncontrast 4.5 mm thick angled axial sections acquired from the foramen magnum to the vertex, with c oronal reformats. COMPARISON: [facility], CT, CT BRAIN WO CON, 11/24/2016, 14:18. FINDINGS: Image quality: Excellent. CSF spaces: Basal cisterns are patent. No extra-axial fluid collections. The ventricles are symmet weston in size and shape. Brain: No intracranial bleeds or masses. There is cerebral volume loss for age, with resultant vent ricular and sulcal prominence. There are periventricular and deep white matter chronic small vessel ischemic changes. There is intracranial internal carotid artery and vertebral artery atherosclerosis . Skull and face: Calvarium and visualized facial bones appear intact, without suspicious lesions. Sinuses: Visualized sinuses are clear. Scattered air-fluid levels noted in dependent portion of the right mastoid air cells. IMPRESSION: 1. No acute intracranial disease process. 2. Scattered air-fluid levels in the right mastoid air cells. Please correlate with direct physical f inding to differentiate serous fluid from an inflammatory process. Dictated by: Janelle Salmeron MD, PhD on 01/26/2017 at 10:03 Approved by: Janelle Salmeron MD, PhD on 01/26/2017 at 10:11
[2017-01-26 10:27] LABS: INR 1.05 ratio
[2017-01-26 10:41] LABS: Magnesium 1.9 mg/dL (1.6-2.6)
[2017-01-26] MEDS ORDERED: Ondansetron 2 mg/mL 2 mL Inj IVPUSH PRN ×2 (10:55→18:00)
[2017-01-26] MEDS ORDERED: Alum-Mag Hydrox-Simeth 30 mL Suspension PO PRN (10:55)
[2017-01-26 11:47] LABS: APPEARANCE,URINE SLIGHTLY CLOUDY (CLEAR,HAZY); COLOR,URINE STRAW (YELLOW); PH,URINE 6.5 (5.0-8.0)
[2017-01-26 11:48] LABS: OCCULT BLOOD,URINE SMALL (NEGATIVE); UROBILINOGEN,URINE NORMAL (NORMAL)
[2017-01-26] MEDS ORDERED: Labetalol 5 mg/mL 4 mL Inj IVPUSH ONE (11:50)
[2017-01-26] MEDS: hydrALAZINE 20 mg/mL Inj IV PRN ×2 (12:06→18:11)
[2017-01-26] MEDS ORDERED: levETIRAcetam Inj 1,000 MG in IV Premix 1 EACH IV ONE (12:30)
--- NOTE | 2017-01-26 14:36 | NUR ---
Admit nurse: Pt admitted with information from medical record, as pt unable to provide details. Med list obtained from pharmacy does not match list from most recent admission. Phone call to daughter to verify meds, voicemail left requesting daughter call back.
--- NOTE | 2017-01-26 15:00 | NUR ---
Patient arrived to room 2003 Pt had CPR performed on him today by family, pt had what believes what a seizure today at home. Pt found to be having a seizure in ER as well today. Pt has no hx of seizures. Pt BP has been very elevated as well. Seizure pads in place
[2017-01-26] MEDS: 0.9% Sodium Chloride 1,000 ML IV SCH (17:59)
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
[2017-01-26] MEDS: Heparin 5,000 Unit/mL Inj SUBQ SCH (20:26)
[2017-01-26] MEDS ORDERED: NUTRITIONAL SUPPLEMENT 113 GM PO SCH (20:30)
--- NOTE | 2017-01-26 21:56 | DRSVH ---
PROCEDURE: US BILATERAL DUPLEX DOPPLER IMAGING OF THE CAROTIDS ([id number]) INDICATIONS: seizure TECHNIQUE: Color and pulse Doppler interrogation was performed of both carotid systems, with image documentation and velocity measurements. COMPARISON: None. FINDINGS: All stenosis calculations are based on NASCET criteria. Right side: Brachial blood pressure: 185/89 mm Hg. Common carotid artery peak systolic velocity: 74 cm/sec. Internal carotid artery peak systolic velocity: 114 cm/sec. Internal carotid artery end diastolic velocity: 22 cm/sec. External carotid artery peak systolic velocity: 100 cm/sec. ICA/CCA peak systolic ratio: 1.56. Abdalla scale imaging description: Calcified plaque in the origin of the right internal carotid artery Percent internal carotid artery stenosis: Less than 50%. Vertebral artery: Flow direction is antegrade. Left side: Brachial blood pressure: 192/95 mm Hg. Common carotid artery peak systolic velocity: 74 cm/sec. Internal carotid artery peak systolic velocity: 108 cm/sec. Internal carotid artery end diastolic velocity: 30 cm/sec. External carotid artery peak systolic velocity: 83 cm/sec. ICA/CCA peak systolic ratio: 1.46. Abdalla scale imaging description: Calcified plaque in the origin of the left internal carotid artery Percent internal carotid artery stenosis: Less than 50%. Vertebral artery: Flow direction is antegrade. IMPRESSION: 1. Less than 50% stenosis of the origins of the internal carotid arteries bilaterally. 2. Hypertension time of imaging. Dictated by: Janelle Salmeron MD, PhD on 01/26/2017 at 21:53 Approved by: Janelle Salmeron MD, PhD on 01/26/2017 at 21:55
[2017-01-27] VITALS (7 sets, daily range): BP systolic 108–158; BP diastolic 64–83; PULSE 56–76; RESP 16–18; O2SAT 94–99
[2017-01-27] MEDS: levETIRAcetam 500 mg Tablet PO SCH ×3 (00:09→20:40)
[2017-01-27] MEDS: Heparin 5,000 Unit/mL Inj SUBQ SCH ×3 (00:09→16:07)
[2017-01-27 03:50] LABS: BASOPHILS % (AUTO) 0.7 % (0-3); EOSINOPHILS % (AUTO) 0.5 % (0-5); MONOCYTES % (AUTO) 15.6 % (4-12); Mean Corpuscular Hemoglobin 29.1 pg (27.0-35.0); Mean Corpuscular Volume 91.1 fL (81-100); NEUTROPHILS % (AUTO) 52.1 % (40-74); Platelet Count 142 bil/L (150-400)
[2017-01-27] MEDS: 0.9% Sodium Chloride 1,000 ML IV SCH ×3 (04:21→16:11)
[2017-01-27 04:42] LABS: TROPONIN T 0.054 ug/L (0.0-0.011)
--- NOTE | 2017-01-27 06:26 | NUR ---
Meds/BP/Tele/Restraints Takes PO meds crushed in apple sauce, At beginning of NOC shift systolic BP 199 , after PO meds administered last BP 158/76, did not need to use PRN Hydralazine , Tele: S-Tach 130 to S-Narendra 39, PAC Room Air, NS @ 100, Trops trending down , Lactic acid 6.8-5.7- 1.5. On 2 point soft restraints .
[2017-01-27] MEDS: Isosorbide Mononitrate 30 mg ER24 Tablet PO SCH (10:44)
--- NOTE | 2017-01-27 10:53 | NUR ---
Palliative Care Palliative Care received verbal order from Dr Brown 01/27/17 to assist with goals of care. Patient is an 87 year old man with significant dementia and new onset seizure disorder. He was admitted 01/26/17. Palliative Care has seen patient multiple times during previous admissions. Serena Covington (daughter) [phone] Palliative Care to follow. Freda Jamil
--- NOTE | 2017-01-27 10:58 | DRSVH ---
PROCEDURE: CT BRAIN WITH CONTRAST INDICATIONS: seizure TECHNIQUE: 4.5 mm thick angled axial sections acquired from the foramen magnum to the vertex after the administr ation of intravenous contrast, with coronal reformats. COMPARISON: [facility], CT, CT BRAIN WO CON, 01/26/2017, 9:36. FINDINGS: Image quality: Excellent. CSF Spaces: Basal cisterns are patent. No extra-axial fluid collections. Ventricles are normal in size and shape. Brain: No midline shift. No intracranial bleeds or masses. No abnormal intracranial enhancement. Abdalla-white interface appears normal. Moderate diffuse triple line loss. Moderate degree of patchy lo w density within the periventricular and subcortical white matter, consistent with small vessel ische heaven disease. Moderate chronic right anterolateral frontal lobe infarct is unchanged. Skull and face: Calvarium and visualized facial bones appear intact, without suspicious lesions. Sinuses: Visualized sinuses and mastoids are clear. IMPRESSION: 1. No explanation for seizure. 2. Volume loss and small vessel ischemic disease. 3. 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 Dictated by: Lio Banks M.D. on 01/27/2017 at 10:33 Approved by: Lio Banks M.D. on 01/27/2017 at 10:57
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
--- NOTE | 2017-01-27 14:43 | NUR ---
Social Work: Initial Assessment D: Per EMR review, pt is a an 87 year old male admitted for AMS Lacticacidosis. Pt is Medicare with [facility] supplement; pt has no LTC insurance or VA benefits. PCP is Flavio Guevara MD. NOK/DPOA is Serena Covington, dtr, . Advanced directives were previously completed with DNR/DNI status however pt's daughter revoked this and pt is full code. Palliative care is seeing pt's daughter to determine code status. Readmit score is moderate, 5/8 CONSTRUCTION RIGGER spoke with pt's daughter over the phone to complete assessment. Sw role and contact info provided. Pt lives at home with his daughter who is 24/7 caregiver. Pt has baseline dementia and is primarily bedbound at home. Pt requires 2pa at home for mobility which dtr states she is capable of providing with assistance from her son. Pt has a w/c and a walker. Pt is currently open with [facility] for RN, PT, OT, , MARIMAR. CONSTRUCTION RIGGER spoke with Vamsi Pinto with [facility] to notify of pt's admission- access provided. Dtr plans to take the pt home with resumed [facility] caregiving and [facility]. A: Pt who lives at home with his dtr who is 24/7 caregiver P: Anticipate pt to discharge home with resumed [facility] caregiving and [facility] for RN, PT, OT, DARIAN Chahal Addendum: 01/27/17 at 1458 by ABIMBOLA HERRERA Amended: Links added.
--- NOTE | 2017-01-27 14:48 | NUR ---
CT Scan, Carvedilol, Restraints CT Scan - He was taken via bed from [facility] 2003 about 0930 to get a brain CT. The sitter went with him. He returned to his room about 0951. Carvedilol - The Carvedilol was held this morning due his hear rate being in the low 50s. Restraints - His restraints were discontinued at 0959 this AM due to him having a 1:1 sitter and not pulling at his lines and wires as often. Care continues.
--- NOTE | 2017-01-27 16:15 | DRSVH ---
[facility] [address] [place] [address] Echocardiogram Report Name: DION PANIAGUA Study Date: 01/27/2017 Height: 70 in Hospital Exam Location: [facility] Weight: 132 lb Gender: Male BSA: 1.7 m2 : 1930 Age: 87 yrs BP: 152/83 mmHg Reason For Study: ELEVATED TROPONIN Ordering Physician: HOSPITALIST SVHPerformed By: Asmita Kowalski Referring Physician: DR. Elieser DEAN Interpretation Summary The left ventricular cavity is small. Left ventricular wall thickness is moderate-severely increased. Left ventricular systolic function is normal without focal wall motion abnormalities. The ejection fraction is estimated to be 60-65%. The right ventricle is normal in size and function. The right ventricular systolic pressure is estimated at 39 mmHg assuming a right atrial pressure of 3 mm Hg. Both atria are moderately dilated. There is no significant valvular heart disease. The aortic root is normal size. There is moderate to severe atherosclerotic plaque(s) in the descending/abdominal aorta. No significant changes since prior study on 11/24/2016. Procedure: A two-dimensional transthoracic echocardiogram with color flow and Doppler was performed. The study quality was technically good. Comparison is made with the echocardiogram of 11-24-2016. The patient was in normal sinus rhythm during the exam. Left Ventricle: The left ventricular cavity is small. Left ventricular wall thickness is moderate-severely increased. Left ventricular systolic function is normal without focal wall motion abnormalities. The ejection fraction is estimated to be 60-65%. Assessment of diastolic parameters indicates a relaxation abnormality of the left ventricle, consistent with normal filling pressures. Right Ventricle: The right ventricle is normal in size and function. Atria: Both atria are moderately dilated. There is no Doppler evidence for an atrial septal defect. Mitral Valve: The mitral valve leaflets appear mildly thickened, but open well. There is mild to moderate mitral annular calcification. There is trace mitral regurgitation. Aortic Valve: The aortic valve is trileaflet. The aortic valve is mildly calcified. Leaflet mobility is minimally reduced. No aortic regurgitation is present. Tricuspid Valve: The tricuspid valve is normal. There is mild tricuspid regurgitation. The right ventricular systolic pressure is estimated at 39 mmHg assuming a right atrial pressure of 3 mm Hg. Pulmonic Valve: The pulmonic valve leaflets are thin and pliable; valve motion is normal. There is a trace or physiologic amount of pulmonic regurgitation. There is no significant valvular heart disease. Great Vessels: The aortic root is normal size. The dimensions of the ascending aorta are normal. Severe atherosclerotic plaque(s) in the descending aorta. The pulmonary artery is normal size. The IVC is of normal diameter and collapses greater than 50% with a sniff. This suggests a low right atrial pressure of 3 mm Hg. Pericardium/ Pleura There is no pericardial effusion. There is no pleural effusion. MMode/2D Measurements & Calculations LVIDd: 3.4 cm LA dimension: 3.5 cm RA long axis LVOT diam LVIDs: 2.5 cm FS: 26.4 % LA A2 area: 25.3 cm RA area AoV Opening EPSS: 0.72 cm LA A4 area: 21.4 cm IVSd: 1.5 cm LA length (vol): 5.5 cm: 20.8 cm Ao root diam LVPWd: 1.4 cm LA vol: 84.4 ml RA vol LA vol index : 71.5 ml asc Aorta RA Diam: 2.5 cm : 40.9 mm/ IVC diam: 2.1 cm RVDd major : 6.3 cm LV bishop. diameter/BSA LV sys. diameter/BSA RVD2 (mid) (cm/m^2): 2.0 (cm/m^2): 1.4 : 2.9 cm Doppler Measurements & Calculations Ao V2 max MV E max tian MV E/A: 0.53 TR max tian : 156.4 cm/sec : 54.7 cm/sec Med Peak E' Tian : 298.3 cm/sec Ao max P.8 mmHg MV A max tian TR max P.6 mmHg Ao mean P.9 mmHg : 103.1 cm/sec E/E' med: 13.7 PA V2 max LVOT Max Tian Lat Peak E' Tian : 106.5 cm/sec : 126.3 cm/sec PA mean P.9 mmHg JENNIFER(I,D): 2.3 cm E/E' lat: 13.9 PA Accel Time sev ratio: 0.75 E/e' average : 0.13 sec Pulm A Revs Dur MV A dur : 0.16 sec Ao V2 mean LV V1 max PG PA V2 mean JENNIFER indexed to BSA : 103.8 cm/sec : 64.3 cm/sec (cm^2/m^2): 1.3 Ao V2 VTI: 33.0 cm LV V1 VTI JENNIFER(V,D): 2.4 cm2 : 24.7 cm Pulm A Revs Dur - MV A Dur: 0.01 msec Reading Physician:JONN
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
--- NOTE | 2017-01-27 17:24 | NUR ---
EEG Cancelled Unable to complete EEG due to him becoming agitated and not holding still. Notified Dr. Brown over the phone. Care continues.
--- NOTE | 2017-01-28 00:23 | NUR ---
Agitation/Lab Draw/Lab Value Pt continues to be agitated and has begun to yell and use profanity and does not want to be touched or to take medication. Pt did not want to have a lab draw so I took a blood sample from the pt's right arm PIV site. Lab called at 2355 with a critical lab value of troponin 0.061 and was paged and made aware. Pt's troponin from AM of 01/27/2017 was 0.054 so the troponin did increase since the AM of 01/27/2017. Will continue to monitor pt for S/S of chest pain and will assist lab for the AM lab draw.
[2017-01-28] MEDS: Heparin 5,000 Unit/mL Inj SUBQ SCH ×3 (00:29→17:05)
[2017-01-28] MEDS: 0.9% Sodium Chloride 1,000 ML IV SCH ×2 (02:14→23:16)
[2017-01-28 04:21] VITALS: BP 123/71; PULSE 67; RESP 16; O2SAT 98
[2017-01-28 05:46] VITALS: PULSE 70
--- NOTE | 2017-01-28 05:46 | NUR ---
No AM Labs/Agitation There are currently no AM labs for the pt. Pt has continued to be restless and agitated when touched. Pt continues to refuse care at this time. We were able to get 2 of the 3 sets of vital signs. Pt continues to need a sitter at this time to prevent pt from pulling on IV lines.
[2017-01-28 08:10] VITALS: BP 127/68; PULSE 59; RESP 18; O2SAT 98
[2017-01-28] MEDS: Isosorbide Mononitrate 30 mg ER24 Tablet PO SCH (09:03)
[2017-01-28] MEDS: levETIRAcetam 500 mg Tablet PO SCH ×2 (09:03→19:52)
--- NOTE | 2017-01-28 11:30 | NUR ---
NUTRITION ASSESSMENT: ASSESS: 86 YO male arrived via EMS due to loss of consciousness just prior to arrival. Family noticed that the patient was suddenly unresponsive shaking foaming at the mouth and eyes rolled back. They called EMS for them to begin CPR. EMS arrived and found the patient unresponsive with shallow breathing and patient did have a pulse. CPR was stopped and the patient was bagged. On route to the ER patient's mental status returned to his baseline. However while in the ER per ER M.D. the patient had another similar episode which was observed to be a grand mal seizure. Patient again returned to his baseline within approximately 30 minutes. There is no documentation of prior history of similar episodes or seizure history. The patient has a significant dysphagia history but is ordered a regular heart healthy diet this admission. PO intake 0 - 75% trays. I requested that a swallow evaluation be ordered. Of note, the patient has had a 21 kg weight loss x 9.5 weeks = 26.21% = severe malnutrition. PMHX:Dementia, chronic pain, HTN, poss CVA, poss VA. LABS: Ca 8.4, Troponin 0.061, Alb 2.7. MEDS:Keppra. GI: BM x 1 (01/27). SKIN: Boby 18. WT: 58.7 kg, bMI 18.0 kg/m2. Admit weight: 59.9 kg. IBW: 75.45 kg (78% IBW) SEVERE WEIGHT LOSS NOTED IN ASSESSMENT. DIET: Heart healthy. PO intake 0 - 75% trays. Requested swallow evaluation for prior history dysphagia. EST. NEEDS (UNDERWEIGHT): Kcals:1493-5373 kcal/day (30-35 kcal/kg BW) Pro: 70-88 g/day (1.2 -1.5 g/kg BW) NUTRITION DIAGNOSIS: 1) Severe malnutrition related to dementia, dysphagia history, as evidenced by 26.21% weight loss x 9 weeks. 2) Chewing / swallowing difficulties related to cognitive impairment as evidenced by historic need for mechanically altered diet texture. NUTRITION INTERVENTION: 1) Will add nectar thick Ensure all trays, as pt was previously on nectar thick liquids. 2) Requested swallow eval to better assessment of diet texture tolerance. MONITOR / EVAL: PO intake, swallow eval., weight, labs, GI, nutrition status. Will monitor per high nutrition risk guidelines.
[2017-01-28 12:12] VITALS: BP 133/65; PULSE 62; RESP 18; O2SAT 98
--- NOTE | 2017-01-28 12:20 | NUR ---
JESSICA Signed Verbal Consent from pt's daughter; pt unable to sign
--- NOTE | 2017-01-28 12:51 | NUR ---
No seizure activity noted Pt has been sleeping this shift, but does wake up for meals. He was able to take his meds this morning. VS are stable. He has a sitter in the room with him as he is confused and impulsive when awake.
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
[2017-01-28 15:44] VITALS: BP 128/67; PULSE 64; RESP 18; O2SAT 97
--- NOTE | 2017-01-28 17:10 | NUR ---
P: Neuro, Social, Nutrition I,E: Pt is oriented to year and place this afternoon, but he does not know what town he is in. He is co operative at this time. I have not seen any family today. He has been sleeping most of today, and was able to eat breakfast, but refused his lunch. He has taken his meds crushed in applesauce, except for meds that cannot be crushed and he was able to take these with applesauce but it is more difficult for him to swallow.
[2017-01-28 19:32] VITALS: BP 137/74; PULSE 58; RESP 16; O2SAT 97
[2017-01-29 00:05] VITALS: BP 121/62; PULSE 58; RESP 17; O2SAT 99
[2017-01-29] MEDS: Heparin 5,000 Unit/mL Inj SUBQ SCH ×2 (00:47→08:46)
[2017-01-29 04:20] VITALS: BP 133/68; PULSE 61; RESP 16; O2SAT 98
[2017-01-29 05:20] VITALS: PULSE 56
[2017-01-29] MEDS: 0.9% Sodium Chloride 1,000 ML IV SCH (05:59)
[2017-01-29 08:00] VITALS: BP 152/75; PULSE 56; RESP 13; O2SAT 97
--- NOTE | 2017-01-29 08:01 | NUR ---
Mentation/DPOA Update Pt slept through most of the shift. Pt was able to answer questions and was aware that he was in a hospital but did not know what year it was. Pt continues to get agitated and combative when touched. Pt's DPOA (daughter Serena) called approximately [phone] and asked for an update status. The pt's sitter spoke with the DPOA. Per the sitter, the DPOA said that she would be coming to the hospital today to visit with the pt. I notified oncoming RN in report that when DPOA arrives that Jennifer T with [facility] needs to be notified at [phone] because DPOA needs to sign a form.
[2017-01-29] MEDS: levETIRAcetam 500 mg Tablet PO SCH (08:42)
[2017-01-29] MEDS: Isosorbide Mononitrate 30 mg ER24 Tablet PO SCH (08:42)
[2017-01-29] MEDS ORDERED: KEP500TA PO (10:20)
--- NOTE | 2017-01-29 10:23 | PCM.DIMED ---
Discharge Instructions Date of Service Jan 29, 2017 Dates of Hospitalization Jan 26, 2017 at 12:16 Discharge Diagnosis Discharge Diagnosis Seizure disorder Medication Instructions A new medication called Keppra (Levatiracetam) has been prescribed twice per day to prevent further seizures. This medication prescription was transmitted to the [facility] pharmacy. Diet Other (resume his previous diet; encourage nutritional supplement) Activity Home Health Phyical Therapy Call your provider Other (any seizure activity) Patient Instructions Check in with your primary care doctor in the next 2 weeks. Follow-up plan Resume the [facility] services for RN, PT, OT Follow-up Provider: Flavio Guevara MD Follow-up with PCP in: 2 weeks Marcus Hart MD Jan 29, 2017 10:23
--- NOTE | 2017-01-29 12:06 | NUR ---
Social Work Note: Discharge Data& Assessment: EMR reviewed. Per pt is medically ready for discharge. Tino Banegas is a 87 year old male admitted on 01/26/2017 for AMS lacticacidosis. Per pt is medically improved and ready for discharge. Pt is usually bed bound at baseline and a 2PA at home. Pt is at baseline mobility and strength. SENDY spoke with Pal with [facility] and notified him of pt discharge for them to resume home health services at the beginning of this week. SENDY faxed DC paperwork to Cee Freeman pt [facility]. SENDY contacted pt DPOA/Caregiver/Daughter and confirmed discharge plan and assessed for any unmet needs. Pt daughter coming to transport pt home today at 1:00p.m. She denies any other needs. No other discharge needs identified. All updated and agreeable to plan. Plan: Anticipated discharge home via POV with [facility] PT, OT, RN as well as [facility]. Pt daughter/caregiver denies any other needs. No other discharge needs identified. All updated and agreeable to plan. DARIAN Wills
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
--- NOTE | 2017-01-29 12:54 | NUR ---
Discharge home Pt D/Cd home in stable condition with family/caregiver. PIV x2 D/Cd intact, tele removed. MD instructions, new meds and follow up discussed with family, written instructions provided. Addendum: 01/29/17 at 1350 by FRANCISCA CURRY RN Pt's caregiver did not take home discharge folder. Info mailed to pt.
== END 2017-01-29 13:41 | disposition home or self-care (01) | DRG 101 ==
LOC: EDUNIT# 09:03 → EDBD 09:03 → SED 09:03 → OBSVTOIN 12:16 → OFED 12:16 → PCC 13:08
PROVIDERS: ADMIT Specialist; ATTEND Specialist
PROC: 4A033R1 Measurement of Arterial Saturation, Peripheral, Percutaneous Approach (ICD-10-PCS; principal; 2017-01-26)
DX: G40.409 Other generalized epilepsy and epileptic syndromes, not intractable, without status epilepticus (principal); I16.1 Hypertensive emergency; F03.91 Unspecified dementia, unspecified severity, with behavioral disturbance; E86.0 Dehydration; I25.2 Old myocardial infarction; Z86.73 Personal history of transient ischemic attack (TIA), and cerebral infarction without residual deficits; F17.210 Nicotine dependence, cigarettes, uncomplicated; N18.3 Chronic kidney disease, stage 3 (moderate); Z51.5 Encounter for palliative care; R74.0 Nonspecific elevation of levels of transaminase and lactic acid dehydrogenase [LDH]

== ENCOUNTER 2017-05-14 00:57 | Inpatient (IN) | payer MEDICARE, MEDICAID ==
[~2017-05-14] VITALS: Ht 180.3 cm; Wt 61.2 kg
[2017-05-14] VITALS (20 sets, daily range): BP systolic 118–230; BP diastolic 67–117; PULSE 78–118; RESP 14–30; O2SAT 90–100
[~2017-05-14 00:57] MED LIST changes: +KEP500TA PO; -OXYC10TA8 PO
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
[2017-05-14] MEDS ORDERED: 0.9% Sodium Chloride 1,000 ML IV ONE (01:15)
--- NOTE | 2017-05-14 01:15 | ABG ---
DateTimeAnalyzed 01:08:22 -_ pH ____7.176 - 7.350 7.450 pCO2 ___39.0__ -mmHg 35.0 45.0 pO2 ___86.0__ -mmHg 69.0 116 HCO3- ___14.4__ -mmol/L 22.0 26.0 ABE __-13.0__ -mmol/L tHb ___12.8__ -g/dL O2Hb ___92.9__ -% COHb ____1.2__ -% 1.5 MetHb ____0.2__ -% sO2 ___94.2__ -% FIO2 ___21.0__ -% Drawn By MD - Date/Time Notified____ 01:15:00 -_ Liter_Flow ____4.00_ -L/min Oxygen Device 1 __CANNULA - Notified By MD - Notified Whom DR GARCIA - K+ ____3.6__ -mmol/L tO2 ___16.8__ -Vol% OrderingPhysicianInitials CR - Trey test N/A -
[2017-05-14] MEDS ORDERED: Albuterol-Ipratropium 3 mL Inhalation Solution NEB ONE (01:20)
[2017-05-14] MEDS ORDERED: levETIRAcetam Inj 1,000 MG in IV Premix 1 EACH IV ONE (01:35)
[2017-05-14 02:02] LABS: BASOPHILS % (AUTO) 0.4 % (0-3); EOSINOPHILS % (AUTO) 1.3 % (0-5); MONOCYTES % (AUTO) 7.7 % (4-12); Mean Corpuscular Hemoglobin 29.8 pg (27.0-35.0); Mean Corpuscular Volume 92.4 fL (81-100); NEUTROPHILS % (AUTO) 74.3 % (40-74); Platelet Count 152 bil/L (150-400)
[2017-05-14 02:14] LABS: INR 1.06 ratio
[2017-05-14] MEDS ORDERED: Polyethylene Glycol (PEG) 17 Gm Powder PO PRN (04:20)
[2017-05-14] MEDS ORDERED: Alum-Mag Hydrox-Simeth 30 mL Suspension PO PRN (04:20)
[2017-05-14] MEDS ORDERED: Senna-Docusate 8.6-50 mg Tablet PO PRN (04:20)
[2017-05-14] MEDS ORDERED: Ondansetron 2 mg/mL 2 mL Inj IVPUSH PRN (04:20)
[2017-05-14] MEDS ORDERED: Propofol 10,000 mCg/mL 100 mL Inj ONE (04:24)
[2017-05-14] MEDS: Propofol Inj 1,000,000 MCG in IV Premix 1 EACH IV SCH (04:30)
--- NOTE | 2017-05-14 04:35 | ABG ---
DateTimeAnalyzed 04:28:09 -_ pH ____7.434 - 7.350 7.450 pCO2 ___36.1__ -mmHg 35.0 45.0 pO2 461 -mmHg 69.0 116 HCO3- ___24.2__ -mmol/L 22.0 26.0 ABE ____0.0__ -mmol/L tHb ___12.5__ -g/dL O2Hb ___99.5__ -% COHb ____0.8__ -% 1.5 MetHb ____0.3__ -% FIO2 ___21.0__ -% PEEP ____5.0__ -cmH2O Set_RR 25 -b/min Vt __500.0__ -L Drawn By MD - Date/Time Notified____ 04:34:00 -_ Spontaneous_RR 25 -b/min Oxygen Device 1 VENTILATOR - Notified By MD - Notified Whom DR GARCIA - K+ ____3.6__ -mmol/L OrderingPhysicianInitials CR - Trey test N/A -
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
[2017-05-14 05:55] LABS: APPEARANCE,URINE CLOUDY (CLEAR,HAZY); COLOR,URINE STRAW (YELLOW); OCCULT BLOOD,URINE MODERATE (NEGATIVE); PH,URINE 5.5 (5.0-8.0); UROBILINOGEN,URINE NORMAL (NORMAL)
[2017-05-14] MEDS ORDERED: Propofol 10,000 mCg/mL 20 mL Inj ONE (05:57)
[2017-05-14] MEDS ORDERED: Succinylcholine Chloride 20 mg/mL 5 mL Inj ONE (05:57)
[2017-05-14] MEDS: Chlorhexidine 0.12% 15 mL Oral Solution MT SCH ×5 (06:17→20:30)
[2017-05-14] MEDS: 0.9% Sodium Chloride 1,000 ML IV SCH ×2 (06:17→15:25)
[2017-05-14] MEDS: Labetalol 5 mg/mL 20 mL Inj IVPUSH PRN (06:57)
--- NOTE | 2017-05-14 08:05 | PCM.PNMED ---
Subjective Date of Service May 14, 2017 Subjective Patient is intubated and sedated. Exam Vital Signs Vital Sign - Last Date Time Temp Pulse Resp B/P Pulse Ox O2 Delivery O2 Flow Rate FiO2 05/14/17 07:31 69 155/85 100 30 05/14/17 06:09 36.6 20 ET Tube 5 Intake and Output 05/13/17 05/13/17 05/14/17 Cumulative From/Thru 15:00 23:00 07:00 05/14/17 01:30 - 05/14/17 06:01 Intake Total 1000 ml 1000 ml Balance 1000 ml 1000 ml Intake IV Total 1000 ml 1000 ml Exam Intubated, sedated. ET tube in place. Anicteric sclera. Lungs are clear with normal rate and effort Heart is regular without murmur gallop or rub Abdomen soft nontender, flat Extremities are free of edema. Skin is free of rash or lesions. Moves all EXTREMITIES to stimulus. Conjugate gaze, symmetric pupils. IVs and Medications Medications Reviewed: Medications were reviewed in detail Lab and Diagnostics Result Diagram: 05/14/17 0145 05/14/17 0145 Assessment & Plan Mr. Banegas is an 87-year-old gentleman with a reported history of new onset seizures diagnosed January 2017, dementia, hypertension, coronary artery disease, and history of stroke, that presented to [facility] 05/14/2017 via EMS for sustained seizure-like activity. He was emergently treated with IV benzodiazepines in addition to Keppra IV, and he subsequently was intubated to protect his airway. He was admitted for evaluation and treatment of status epilepticus. - Hospital day one Status epilepticus, acute, present on admission. Resolved. No current obvious seizure activity. - Actively seizing at time of arrival - According to recent discharge summary January 2017, patient was prescribed Keppra 500 mg twice a day; per reports, this medication was not continued by the patient; likely the etiology for this presentation - Provided Keppra 1 g IV, plus Versed IV - Continue Keppra 500 mg twice a day - Keppra level ordered and pending - Seizure precautions - Lactic acid ordered; will likely be elevated - Consider neurology consultation; per reports, pt does not have outpt neurologist Acute hypoxemic respiratory failure requiring mechanical ventilation, present on admission. Active. - Intubated and sedated at time of admission - Initial vent settings: FiO2 1.0, PEEP 5, RR 25, Vt 500cc - ABG prior to intubation: pH 7.176, pCO2 39.0, pO2 86.0, HCO3 14.4 - Likely secondary to benzodiazepines to control seizure - Meds: Propofol drip, fentanyl IV push when necessary - ABG in a.m. - Pulmonary consult placed; please contact team in the morning. The patient will be on propofol flexible hours all his blood pressure down. We will then wean the propofol and reassess him. Acute on chronic kidney injury, present on admission. Active. - On admit: Creatinine 1.84; January 2017 1.21 - Likely secondary to dehydration - NS 100 - Monitor with fluid resuscitation. History of dementia, chronic. Presumed stable - Patient has significant history of coronary artery disease - CT brain revealed multiple chronic ischemic small vessel changes and a small old right frontal infarct - According to previous admission, patient can be combative - Supportive therapies History of coronary artery disease with myocardial infarction, chronic. Presumed stable - Resume home meds when rec completed: Isosorbide, hydralazine, carvedilol, atorvastatin will need to be verified History of chronic pain on chronic continuous opiate therapy. Presumed stable - Fentanyl for mechanical ventilation - Resume home po meds when appropriate Hypoalbuminemia, appears chronic, present on admission. Presumed stable - On admit: 2.8 - Monitor, encourage dietary protein intake Goals of care, ongoing. - According to chart, patient was DNR/DNI in December 2016 - Recent admission January 2017 patient changed to full code - No family present at time of admission, patient was intubated and sedated - Readdress when family present, encourage completion of POLST DVT: Hep q8 Diet: NPO GI: PPI IVF: NS 100 PRN: Bowel/fever/nausea/pain High risk meds: Fentanyl IV Code: Full code Patient status: Due to severity of presenting symptoms, risk of adverse events, and likely course of care, anticipated length of stay exceeds two midnights; patient admitted as inpatient status to CCU GI Prophylaxis: Proton Pump Inhibitor VTE Prophylaxis: Sub-Q Heparin (Unfractionated) VTE Mechanical Devices: Intermittant Pneumatic CD Resuscitation Status: CPR: Attempt Resuscitation Trey Toribio MD May 14, 2017 08:05
[2017-05-14] MEDS ORDERED: KCl 40 mEq/D5W 500 mL 40 MEQ in IV Premix 1 EACH IV ONE (08:20)
[2017-05-14] MEDS: Pantoprazole 4 mg/mL 10 mL Inj IVPUSH SCH (08:26)
[2017-05-14] MEDS: Isosorbide Mononitrate 30 mg ER24 Tablet PO SCH (08:26)
[2017-05-14] MEDS: fentaNYL-PF 50 mCg/mL 2 mL Inj IVPUSH PRN ×3 (09:13→21:12)
--- NOTE | 2017-05-14 09:13 | DRSVH ---
PROCEDURE: CT BRAIN WITHOUT CONTRAST ([id number]) INDICATIONS: SEIZURE TECHNIQUE: Noncontrast 4.5 mm thick angled axial sections acquired from the foramen magnum to the vertex, with c oronal reformats. COMPARISON: [facility], CT, CT BRAIN W CON, 01/27/2017, 9:35. [facility], CT , CT BRAIN WO CON, 01/26/2017, 9:36. FINDINGS: Image quality: Excellent. CSF spaces: Basal cisterns are patent. No extra-axial fluid collections. There is anih-hi-maotaqpt cerebral volume loss, with resultant ventricular and sulcal prominence. Brain: No intracranial hemorrhage, mass, or mass effect. There is a small region of encephalomalaci a redemonstrated in the right frontal lobe consistent with a prior infarct. There are subcortical, p eriventricular and deep white matter hypodensities consistent with moderate chronic small vessel isch emic changes. There is intracranial internal carotid artery atherosclerosis. Skull and face: Calvarium and visualized facial bones appear intact, without suspicious lesions. Sinuses: Visualized sinuses and mastoids are clear. IMPRESSION: 1. No acute intracranial abnormality. 2. Small right frontal lobe region of encephalomalacia redemonstrated consistent with a prior infarc t. 3. Chronic white matter small vessel ischemic changes and cerebral volume loss again noted. Dictated by: Neri Villanueva M.D. on 05/14/2017 at 9:03 Approved by: Neri Villanueva M.D. on 05/14/2017 at 9:05
--- NOTE | 2017-05-14 10:17 | DRSVH ---
PROCEDURE: X-RAY CHEST ONE VIEW, PORTABLE ([id number]) INDICATIONS: seizure TECHNIQUE: One view of the chest was acquired. COMPARISON: [facility], CR, CHEST 2 VIEW, 05/18/2016, 17:44. [facility], CR, XR [facility]HANE ST 1VW (PORTABLE), 01/26/2017, 9:11. FINDINGS: Surgical changes and devices: None. Lungs and pleura: No pleural effusions or pneumothorax. There is mild interstitial prominence redem onstrated in the lung bases. No acute consolidation. Mediastinum: Mediastinal contours appear unchanged. Heart size is normal. Bones and chest wall: No suspicious bony lesions. Multiple round small metallic densities are redem onstrated projecting over the left hemithorax likely within the anterior chest wall. IMPRESSION: 1. No acute cardiopulmonary disease. Dictated by: Neri Villanueva M.D. on 05/14/2017 at 10:08 Approved by: Neri Villanueva M.D. on 05/14/2017 at 10:09
--- NOTE | 2017-05-14 10:19 | DRSVH ---
PROCEDURE: X-RAY CHEST ONE VIEW, PORTABLE ([id number]) INDICATIONS: post intubation TECHNIQUE: One view of the chest was acquired. COMPARISON: [facility], CR, XR CHEST 1VW (PORTABLE), 05/14/2017, 1:15. FINDINGS: Surgical changes and devices: There is a new endotracheal tube with the tip approximately 6 cm from t he tyler. Lungs and pleura: No pleural effusions or pneumothorax. The visualized lungs are clear with the lat eral costophrenic angles incompletely included. A few interstitial opacities are again noted in the lung bases. Mediastinum: Mediastinal contours appear unchanged. Heart size is normal. Bones and chest wall: No suspicious bony lesions. Multiple metallic foreign bodies are redemonstrat ed projecting over the left hemithorax. IMPRESSION: 1. New endotracheal tube demonstrated with tip approximately 6 cm from the tyler. 2. No definite acute cardiopulmonary disease. Dictated by: Neri Villanueva M.D. on 05/14/2017 at 10:09 Approved by: Neri Villanueva M.D. on 05/14/2017 at 10:11
--- NOTE | 2017-05-14 13:34 | PCM.PNMED ---
Subjective Date of Service May 14, 2017 Subjective Mr. Banegas is an 87-year-old gentleman with a reported history of new onset seizures diagnosed January 2017, dementia, hypertension, coronary artery disease, and history of stroke, that presented to [facility] 05/14/2017 via EMS for sustained seizure-like activity. He was emergently treated with IM/IV benzodiazepines in addition to Keppra IV, and he subsequently was intubated to protect his airway. He was admitted for evaluation and treatment of status epilepticus. [facility] consultation is requested for management of ventilation. He is intubated and appears comfortable. No further seizures noted over noc. Exam Vital Signs Vital Sign - Last Date Time Temp Pulse Resp B/P Pulse Ox O2 Delivery O2 Flow Rate FiO2 05/14/17 12:30 36.6 80 14 155/86 96 Room Air 05/14/17 11:31 30 05/14/17 06:09 5 Intake and Output 05/13/17 05/13/17 05/14/17 Cumulative From/Thru 15:00 23:00 07:00 05/14/17 01:30 - 05/14/17 06:01 Intake Total 1000 ml 1000 ml Balance 1000 ml 1000 ml Intake IV Total 1000 ml 1000 ml Exam WDWN man orally intubated in NAD Lungs Decreased BS, no wheezes CV RRR nl S1S2, no m/g/r Abd Soft, no BTs Neuro Face appears symmetric, no spont movements on sedation Lab and Diagnostics Result Diagram: 05/14/17 0145 05/14/17 0145 Assessment & Plan Mr. Banegas is an 87-year-old gentleman with a reported history of new onset seizures diagnosed January 2017, dementia, hypertension, coronary artery disease, and history of stroke, that presented to [facility] 05/14/2017 via EMS for sustained seizure-like activity. He was emergently treated with IV benzodiazepines in addition to Keppra IV, and he subsequently was intubated to protect his airway. After tolerating a SBT for 30 minutes he has tolerated extubaiton. No further seizures seen. PCCM will sign off. Please reconsult as needed GI Prophylaxis: Proton Pump Inhibitor VTE Prophylaxis: Sub-Q Heparin (Unfractionated) VTE Mechanical Devices: Intermittant Pneumatic CD Resuscitation Status: CPR: Attempt Resuscitation Eb Arriaza MD May 14, 2017 13:34
[2017-05-14] MEDS ORDERED: Piper-Tazo 3.375 Gm/50 mL D5W Minibag Plus - Q8H over 4 hrs IV ONE ×2 (16:55)
[2017-05-14] MEDS: Acetaminophen IV 1,000 MG in IV Premix 1 EACH IV PRN (17:13)
[2017-05-15] VITALS (8 sets, daily range): BP systolic 116–188; BP diastolic 66–95; PULSE 57–93; RESP 16–23; O2SAT 93–100
[2017-05-15] MEDS: Acetaminophen IV 1,000 MG in IV Premix 1 EACH IV PRN (00:20)
[2017-05-15] MEDS: Piperacillin-Tazo 3.375 Gm Inj 3.375 GM in Dextrose 5% Minibag Plus 50 ML IV SCH ×3 (00:24→17:11)
[2017-05-15] MEDS: Chlorhexidine 0.12% 15 mL Oral Solution MT SCH ×3 (00:30→08:01)
[2017-05-15] MEDS: fentaNYL-PF 50 mCg/mL 2 mL Inj IVPUSH PRN (00:35)
[2017-05-15] MEDS: 0.9% Sodium Chloride 1,000 ML IV SCH ×3 (01:25→21:18)
[2017-05-15] MEDS: Propofol Inj 1,000,000 MCG in IV Premix 1 EACH IV SCH (04:40)
[2017-05-15] MEDS: Isosorbide Mononitrate 30 mg ER24 Tablet PO SCH (08:01)
[2017-05-15] MEDS: Pantoprazole 4 mg/mL 10 mL Inj IVPUSH SCH (08:14)
--- NOTE | 2017-05-15 10:33 | PCM.PNMED ---
Subjective Date of Service May 15, 2017 Subjective Patient has severe cognitive impairment is not able to answer subjective or review of systems questions. He is awake but does not follow commands. The patient had no seizure activity overnight. No other overnight events. Exam Vital Signs Vital Sign - Last Date Time Temp Pulse Resp B/P Pulse Ox O2 Delivery O2 Flow Rate FiO2 05/15/17 10:02 93 05/15/17 08:09 36.5 16 167/69 93 Nasal Cannula 2.00 05/14/17 11:31 30 Intake and Output 05/14/17 05/14/17 05/15/17 Cumulative From/Thru 15:00 23:00 07:00 05/14/17 01:30 - 05/15/17 06:33 Intake Total 1787 ml 677 ml 3464 ml Output Total 2200 ml 150 ml 2350 ml Balance -413 ml 527 ml 1114 ml Intake Oral 0 ml 0 ml IV Total 1787 ml 677 ml 3464 ml Output Urine Total 2200 ml 150 ml 2350 ml # Bowel Movements 1 1 Exam Patient is awake and in no distress but not particularly interactive. On speaking Anicteric sclera. Lungs are clear with normal rate and effort Heart is regular without murmur gallop or rub Abdomen soft nontender, flat Extremities are free of edema. Skin is free of rash or lesions. IVs and Medications Medications Reviewed: Medications were reviewed in detail Lab and Diagnostics Result Diagram: 05/14/17 0145 05/14/17 1425 Assessment & Plan Mr. Banegas is an 87-year-old gentleman with a reported history of new onset seizures diagnosed January 2017, dementia, hypertension, coronary artery disease, and history of stroke, that presented to [facility] 05/14/2017 via EMS for sustained seizure-like activity. He was emergently treated with IV benzodiazepines in addition to Keppra IV, and he subsequently was intubated to protect his airway. He was admitted for evaluation and treatment of status epilepticus. - Hospital day one Status epilepticus, acute, present on admission. Resolved. No current obvious seizure activity. - Actively seizing at time of arrival - According to recent discharge summary January 2017, patient was prescribed Keppra 500 mg twice a day; per reports, this medication was not continued by the patient; likely the etiology for this presentation - Provided Keppra 1 g IV, plus Versed IV - Continue Keppra 500 mg twice a day - Keppra level ordered and pending - Seizure precautions - Lactic acid ordered; will likely be elevated -She is doing well. Will simply resume his antiepileptics. He was not taking this for the last several months. Acute hypoxemic respiratory failure requiring mechanical ventilation, present on admission. Patient Is doing well on room air. Acute kidney injury, present on admission. Active and improving.. - On admit: Creatinine 1.84; January 2017 1.21 - Likely secondary to dehydration - NS 100 - Monitor with fluid resuscitation. Chronic kidney disease, stage III. POA. History of dementia, chronic. Presumed stable - Patient has significant history of coronary artery disease - CT brain revealed multiple chronic ischemic small vessel changes and a small old right frontal infarct - According to previous admission, patient can be combative - Supportive therapies History of coronary artery disease with myocardial infarction, chronic. Presumed stable - Resume home meds when rec completed: Isosorbide, hydralazine, carvedilol, atorvastatin will need to be verified History of chronic pain on chronic continuous opiate therapy. Presumed stable - Fentanyl for mechanical ventilation - Resume home po meds when appropriate Hypoalbuminemia, appears chronic, present on admission. Presumed stable - On admit: 2.8 - Monitor, encourage dietary protein intake Goals of care, ongoing. - According to chart, patient was DNR/DNI in December 2016 - Recent admission January 2017 patient changed to full code - No family present at time of admission, patient was intubated and sedated - Readdress when family present, encourage completion of POLST DVT: Hep q8 Diet: NPO GI: PPI IVF: NS 100 PRN: Bowel/fever/nausea/pain High risk meds: Fentanyl IV Code: Full code We will begin to evaluate discharge constraints and what he may need to do better at home with his daughter today. Dyspneic discharge within one day. GI Prophylaxis: Proton Pump Inhibitor VTE Prophylaxis: Sub-Q Heparin (Unfractionated) VTE Mechanical Devices: Intermittant Pneumatic CD Resuscitation Status: CPR: Attempt Resuscitation Trey Toribio MD May 15, 2017 10:33
[2017-05-15] MEDS ORDERED: fentaNYL-PF 50 mCg/mL 2 mL Inj IVPUSH ONE (20:30)
[2017-05-15] MEDS: Haloperidol 5 mg/mL Inj IVPUSH PRN (22:24)
[2017-05-16] MEDS: Piperacillin-Tazo 3.375 Gm Inj 3.375 GM in Dextrose 5% Minibag Plus 50 ML IV SCH ×3 (00:05→22:41)
[2017-05-16] MEDS: Haloperidol 5 mg/mL Inj IVPUSH PRN ×2 (02:16→14:58)
[2017-05-16 03:33] VITALS: BP 150/64; PULSE 64; RESP 16; O2SAT 94
[2017-05-16 07:39] VITALS: BP 188/95; PULSE 82; RESP 20; O2SAT 95
--- NOTE | 2017-05-16 08:26 | PCM.PNMED ---
Subjective Date of Service May 16, 2017 Subjective The patient is severely demented but awake. He is yelling out randomly and has been most of the night. He is not moving otherwise. No seizure activity. ROS and subjective not obtainable due to dementia. No other overnight events. Exam Vital Signs Vital Sign - Last Date Time Temp Pulse Resp B/P Pulse Ox O2 Delivery O2 Flow Rate FiO2 05/16/17 07:39 36.8 82 20 188/95 95 Room Air 05/15/17 16:05 2.00 05/14/17 11:31 30 Intake and Output 05/15/17 05/15/17 05/16/17 Cumulative From/Thru 15:00 23:00 07:00 05/14/17 01:30 - 05/16/17 06:09 Intake Total 1322 ml 878 ml 5664 ml Output Total 320 ml 700 ml 3370 ml Balance 1002 ml 178 ml 2294 ml Intake Oral 0 ml IV Total 1322 ml 878 ml 5664 ml Output Urine Total 320 ml 700 ml 3370 ml # Bowel Movements 1 2 Exam Awake and yellowing randomly. Not visibly agitated. Anicteric sclera. Lungs are clear with normal rate and effort Heart is regular without murmur gallop or rub Abdomen soft nontender, flat Extremities are free of edema. Skin is free of rash or lesions. IVs and Medications Medications Reviewed: Medications were reviewed in detail Lab and Diagnostics Result Diagram: 05/14/17 0145 05/14/17 1425 Assessment & Plan Mr. Banegas is an 87-year-old gentleman with a reported history of new onset seizures diagnosed January 2017, dementia, hypertension, coronary artery disease, and history of stroke, that presented to [facility] 05/14/2017 via EMS for sustained seizure-like activity. He was emergently treated with IV benzodiazepines in addition to Keppra IV, and he subsequently was intubated to protect his airway. He was admitted for evaluation and treatment of status epilepticus. - Hospital day one Status epilepticus, acute, present on admission. Resolved. No current obvious seizure activity. - Continue Keppra 500 twice a day, discharge on the same. Anticipate long-term need for Keppra Acute hypoxemic respiratory failure requiring mechanical ventilation, present on admission. Patient Is doing well on room air. He has pneumococcus on his sputum but no evidence of acute pneumonia. Follow clinically. Possible aspiration pneumonia, POA. He was to be stable and improving. We will continue Zosyn. We will recheck chest x-ray today. Sputum did reveal pneumococcs and normal viridiana Hypertension, poorly controlled. POA. We will increase his Coreg to 6.25 twice a day and continue hydralazine as well as isosorbide. Acute kidney injury, present on admission. Resolved Chronic kidney disease, stage III. POA. They will. History of dementia, chronic. Stable History of coronary artery disease with myocardial infarction, chronic. Stable -Resume usual medications. History of chronic pain on chronic continuous opiate therapy. Stable Resume home medications. Hypoalbuminemia, appears chronic, present on admission. Presumed stable - On admit: 2.8 - Monitor, encourage dietary protein intake Goals of care, ongoing. - According to chart, patient was DNR/DNI in December 2016 - Recent admission January 2017 patient changed to full code - No family present at time of admission, patient was intubated and sedated - Readdress when family present, encourage completion of POLST A discussion with daughter on phone yesterday. Anticipate possible discharge in next 1-2 days. We will need to further review needs for discharge with social work in the family. DVT: Hep q8 Diet: NPO GI: PPI IVF: NS 100 PRN: Bowel/fever/nausea/pain High risk meds: Fentanyl IV Code: Full code We will begin to evaluate discharge constraints and what he may need to do better at home with his daughter today. Dyspneic discharge within one day. GI Prophylaxis: Proton Pump Inhibitor VTE Prophylaxis: Sub-Q Heparin (Unfractionated) VTE Mechanical Devices: Intermittant Pneumatic CD Resuscitation Status: CPR: Attempt Resuscitation Trey Toribio MD May 16, 2017 08:26
[2017-05-16] MEDS: 0.9% Sodium Chloride 1,000 ML IV SCH ×2 (09:56→17:25)
[2017-05-16 10:10] VITALS: PULSE 80
[2017-05-16] MEDS: Pantoprazole 4 mg/mL 10 mL Inj IVPUSH SCH (10:58)
[2017-05-16] MEDS: Isosorbide Mononitrate 30 mg ER24 Tablet PO SCH (11:00)
[2017-05-16 11:35] VITALS: BP 159/98; PULSE 98; RESP 17; O2SAT 97
--- NOTE | 2017-05-16 11:50 | DRSVH ---
PROCEDURE: X-RAY CHEST ONE VIEW, PORTABLE ([id number]) INDICATIONS: cough TECHNIQUE: One view of the chest was acquired. COMPARISON: [facility], CR, XR CHEST 1VW (PORTABLE), 11/20/2016, 19:42. [facility], CR, XR CHEST 1VW (PORTABLE), 05/14/2017, 3:55. FINDINGS: Surgical changes and devices: Innumerable metallic foreign bodies are again noted projected over the left apex. The patient has been extubated. The NG tube has been removed. Lungs and pleura: There is blunting of the bilateral costophrenic sulci and mild streaky basilar radi opacities. No pleural effusion. Mediastinum: Mediastinal contours appear normal. Heart size is normal. Bones and chest wall: No suspicious bony lesions. Overlying soft tissues appear unremarkable. IMPRESSION: Bibasilar radiopacities and small bilateral pleural effusion suggesting aspiration/infect ion. These findings are new when compared with the prior study dated 05/14/17. Dictated by: Lindsey Valdes M.D. on 05/16/2017 at 11:46 Approved by: Lindsey Valdes M.D. on 05/16/2017 at 11:48
[2017-05-16 14:51] VITALS: BP 174/76; PULSE 97; RESP 22; O2SAT 97
[2017-05-16 21:39] VITALS: BP 174/75; PULSE 77; RESP 20; O2SAT 97
[2017-05-17] MEDS: 0.9% Sodium Chloride 1,000 ML IV SCH ×3 (03:05→23:36)
[2017-05-17 05:30] VITALS: BP 171/104; PULSE 88; RESP 20; O2SAT 96
[2017-05-17] MEDS: Piperacillin-Tazo 3.375 Gm Inj 3.375 GM in Dextrose 5% Minibag Plus 50 ML IV SCH ×3 (06:15→21:48)
[2017-05-17 07:52] LABS: BASOPHILS % (AUTO) 0.3 % (0-3); EOSINOPHILS % (AUTO) 1.1 % (0-5); MONOCYTES % (AUTO) 9.4 % (4-12); Mean Corpuscular Hemoglobin 29.6 pg (27.0-35.0); Mean Corpuscular Volume 89.6 fL (81-100); NEUTROPHILS % (AUTO) 71.9 % (40-74); Platelet Count 147 bil/L (150-400)
[2017-05-17 08:13] LABS: Magnesium 1.7 mg/dL (1.6-2.6)
[2017-05-17] MEDS: Isosorbide Mononitrate 30 mg ER24 Tablet PO SCH ×2 (08:30→08:43)
[2017-05-17] MEDS: Pantoprazole 40 mg ER24 Tablet PO SCH ×2 (08:50→08:53)
[2017-05-17 08:57] LABS: INR 1.06 ratio
[2017-05-17 14:29] VITALS: BP 170/77; PULSE 73; RESP 18; O2SAT 95
--- NOTE | 2017-05-17 16:04 | PCM.PNMED ---
Subjective Date of Service May 17, 2017 Subjective ROS limited due to patient not answering questions other than his name. Exam Vital Signs Vital Sign - Last Date Time Temp Pulse Resp B/P Pulse Ox O2 Delivery O2 Flow Rate FiO2 05/17/17 14:29 36.8 73 18 170/77 95 Room Air 05/15/17 16:05 2.00 05/14/17 11:31 30 Intake and Output 05/16/17 05/16/17 05/17/17 Cumulative From/Thru 15:00 23:00 07:00 05/14/17 01:30 - 05/17/17 05:30 Intake Total 375 ml 0 ml 6039 ml Output Total 825 ml 600 ml 4795 ml Balance -450 ml -600 ml 1244 ml Intake Oral 100 ml 0 ml 100 ml IV Total 275 ml 5939 ml Output Urine Total 825 ml 600 ml 4795 ml # Bowel Movements 1 1 4 General: Alert, No Acute Distress Head: Normal Eyes: Scleral Anicteric Nose: Mucous Membr Moist/Aldan Mouth: Mucous Membr Moist/Aldan Neck: Supple Chest & Lungs: Chest Wall Normal, Clear to auscultation & percussion Cardiovascular: Regular Rate/Rhythm Pulses: NL carotid, radial, femoral, DP, PT Extremities: No cyanosis/clubbing/edma bilat Neurological: Grossly Neurologically Intact IVs and Medications Medications Reviewed: Medications were reviewed in detail Lab and Diagnostics Result Diagram: 05/17/1750905/17/1710 Assessment & Plan 87-year-old gentleman with a reported history of new onset seizures diagnosed January 2017, dementia, hypertension, coronary artery disease, and history of stroke, that presented to [facility] 05/14/2017 via EMS for sustained seizure-like activity. He was emergently treated with IV benzodiazepines in addition to Keppra IV, and he subsequently was intubated to protect his airway. He was admitted for evaluation and treatment of status epilepticus. # Acute status epilepticus, present on admission. Resolved. No current obvious seizure activity. - Continue Keppra 500 twice a day started on admission - Neurology consult in next couple of days (when available) - Anticipate long-term need for Keppra # Acute hypoxemic respiratory failure requiring mechanical ventilation for airway protection on admission - Post extubation on 05/14/17 # Possible acute aspiration pneumonia, present on admission. - CXR on 05/16 suggestive of bibasilar pneumonia - Sputum culture growing Streptococcus Pneumoniae - Continue Zosyn (started on 05/14/17) - Consider ID consult in AM - Check Blood culture x 2 sets today (not ordered on admission!) # Acute UTI, present on admission - Cultures not sent on admission! - Repeat UA today and send for culture if still positive - IV Zosyn as noted above # Acute Lactic Acid elevation, present on admission - Resolved - Likely due to presenting seizure # Chronic hypertension, poorly controlled. POA. - Continue with Coreg 6.25 twice a day - Continue hydralazine - Continue Imdur # Acute kidney injury on chronic kidney disease, stage III, present on admission. - Resolved and back to baseline # History of dementia, chronic. - Presumed stable # History of coronary artery disease with myocardial infarction, chronic. Stable - Continue with usual medications. # History of chronic pain on chronic continuous opiate therapy. Stable - Continue home medications. # Hypoalbuminemia, appears chronic, present on admission. Presumed stable - On admit: 2.8 - Monitor, encourage dietary protein intake # Goals of care, ongoing. - Palliative care consulted. Will followup with recs Dispo: 2-3 days GI Prophylaxis: Proton Pump Inhibitor VTE Prophylaxis: Sub-Q Heparin (Unfractionated) VTE Mechanical Devices: Intermittant Pneumatic CD Jose Guzman May 17, 2017 16:04 Jose Guzman May 17, 2017 16:04
[2017-05-17 17:17] LABS: APPEARANCE,URINE HAZY (CLEAR,HAZY); COLOR,URINE YELLOW (YELLOW); OCCULT BLOOD,URINE NEGATIVE (NEGATIVE); PH,URINE 5.5 (5.0-8.0); UROBILINOGEN,URINE NORMAL (NORMAL)
[2017-05-17 20:28] VITALS: BP 174/84; PULSE 75; RESP 20; O2SAT 98
[2017-05-18] MEDS: Piperacillin-Tazo 3.375 Gm Inj 3.375 GM in Dextrose 5% Minibag Plus 50 ML IV SCH ×3 (05:13→21:32)
[2017-05-18 05:49] VITALS: BP 188/84; PULSE 72; RESP 20; O2SAT 97
[2017-05-18] MEDS: Pantoprazole 40 mg ER24 Tablet PO SCH ×2 (06:11→06:19)
[2017-05-18 06:22] LABS: BASOPHILS % (AUTO) 0.2 % (0-3); MONOCYTES % (AUTO) 12.1 % (4-12); NEUTROPHILS % (AUTO) 60.9 % (40-74); Platelet Count 161 bil/L (150-400)
[2017-05-18 06:48] LABS: Magnesium 1.6 mg/dL (1.6-2.6)
[2017-05-18] MEDS: Isosorbide Mononitrate 30 mg ER24 Tablet PO SCH (08:10)
[2017-05-18 09:30] VITALS: BP 117/53; O2SAT 97
[2017-05-18] MEDS: 0.9% Sodium Chloride 1,000 ML IV SCH ×2 (09:58→21:02)
--- NOTE | 2017-05-18 10:42 | PCM.PNMED ---
Subjective Date of Service May 18, 2017 Subjective Denies any pain or discomfort today. Says thinks "doing better today". Denies any new issues/complaints Exam Vital Signs Vital Sign - Last Date Time Temp Pulse Resp B/P Pulse Ox O2 Delivery O2 Flow Rate FiO2 05/18/17 05:49 36.7 72 20 188/84 97 Room Air 05/15/17 16:05 2.00 05/14/17 11:31 30 Intake and Output 05/17/17 05/17/17 05/18/17 Cumulative From/Thru 15:00 23:00 07:00 05/14/17 01:30 - 05/17/17 17:48 Intake Total 2049 ml 754 ml 8842 ml Output Total 200 ml 4995 ml Balance 2049 ml 554 ml 3847 ml Intake Oral 298 ml 398 ml IV Total 2049 ml 456 ml 8444 ml Output Urine Total 200 ml 4995 ml # Bowel Movements 4 Exam General: Alert, No Acute Distress. Oriented to place and time but not person. Head: Normal Eyes: Scleral Anicteric Nose: Mucous Membr Moist/Trego Mouth: Mucous Membr Moist/Trego Neck: Supple Chest & Lungs: Chest Wall Normal, Clear to auscultation bilat Cardiovascular: Regular Rate/Rhythm Abdomen: Soft, NT, ND, +BS Pulses: NL radial bilat Extremities: No cyanosis/clubbing/edema bilat Neurological: Grossly Neurologically Intact. Very hard of hearing and poor vision IVs and Medications Medications Reviewed: Medications were reviewed in detail Lab and Diagnostics Result Diagram: 05/18/1752905/18/17529 X-Rays, CTs and MRIs Date of Service: 05/16/17 0826 PROCEDURE: X-RAY CHEST ONE VIEW, PORTABLE ([id number]) IMPRESSION: Bibasilar radiopacities and small bilateral pleural effusion suggesting aspiration/infection. These findings are new when compared with the prior study dated 05/14/17. Dictated by: Lindsey Valdes M.D. on 05/16/2017 at 11:46 Approved by: Lindsey Valdes M.D. on 05/16/2017 at 11:48 Assessment & Plan 87-year-old gentleman with a reported history of new onset seizures diagnosed January 2017, dementia, hypertension, coronary artery disease, and history of stroke, that presented to [facility] 05/14/2017 via EMS for sustained seizure-like activity. He was emergently treated with IV benzodiazepines in addition to Keppra IV, and he subsequently was intubated to protect his airway. He was admitted for evaluation and treatment of status epilepticus. # Acute status epilepticus, present on admission. Resolved. No current obvious seizure activity. - Continue Keppra 500 twice a day started on admission - Neurology consult in next couple of days (when available) - Anticipate long-term need for Keppra # Acute hypoxemic respiratory failure requiring mechanical ventilation for airway protection on admission - Post extubation on 05/14/17 # Possible acute aspiration pneumonia, present on admission. - CXR on 05/16 suggestive of bibasilar pneumonia - Sputum culture growing Streptococcus Pneumoniae - Continue Zosyn (started on 05/14/17) - Consider ID consult vs curbside - Followup Blood cultures x 2 sets ordered on 05/17 (not ordered on admission!) # Acute UTI, present on admission - Cultures not sent on admission! - Repeat UA 05/17 still positive. Followup on cultures. - IV Zosyn as noted above # Acute hypokalemia. - Replete and followup # Acute Lactic Acid elevation, present on admission - Resolved - Likely due to presenting seizure # Chronic hypertension, poorly controlled. POA. - Continue with Coreg 6.25 twice a day - Continue hydralazine - Continue Imdur # Acute kidney injury on chronic kidney disease, stage III, present on admission. - Resolved and back to baseline # History of dementia, chronic. - Presumed stable # History of coronary artery disease with myocardial infarction, chronic. Stable - Continue with usual medications. # History of chronic pain on chronic continuous opiate therapy. Stable - Continue home medications. # Hypoalbuminemia, appears chronic, present on admission. Presumed stable - On admit: 2.8 - Monitor, encourage dietary protein intake # Goals of care, ongoing. - Palliative care consulted. Will followup with recs Dispo: 2-3 days GI Prophylaxis: Proton Pump Inhibitor VTE Prophylaxis: Sub-Q Heparin (Unfractionated) VTE Mechanical Devices: Intermittant Pneumatic CD Jose Guzman May 18, 2017 10:42
[2017-05-18] MEDS ORDERED: Potassium Chloride 20 mEq SR Tablet PO ONE (10:45)
[2017-05-18] MEDS ORDERED: Magnesium Sulf 2 Gm/50mL Water 2 GM in IV Premix 1 EACH IV ONE (10:45)
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
[2017-05-18 13:32] VITALS: BP 134/64; PULSE 68; RESP 22; O2SAT 94
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
[2017-05-18 21:09] VITALS: BP 196/94; PULSE 77; RESP 22; O2SAT 99
[2017-05-19] MEDS: Labetalol 5 mg/mL 20 mL Inj IVPUSH PRN (03:19)
[2017-05-19 03:21] VITALS: BP 163/81
[2017-05-19 03:29] VITALS: BP 160/74
[2017-05-19 04:28] VITALS: BP 171/77; PULSE 51; RESP 20; O2SAT 97
[2017-05-19] MEDS: Piperacillin-Tazo 3.375 Gm Inj 3.375 GM in Dextrose 5% Minibag Plus 50 ML IV SCH ×3 (05:11→21:19)
[2017-05-19] MEDS: Pantoprazole 40 mg ER24 Tablet PO SCH ×2 (05:13→08:37)
[2017-05-19] MEDS: 0.9% Sodium Chloride 1,000 ML IV SCH ×2 (07:39→17:43)
[2017-05-19] MEDS: Isosorbide Mononitrate 30 mg ER24 Tablet PO SCH ×2 (08:30→08:37)
[2017-05-19 08:49] LABS: Magnesium 1.9 mg/dL (1.6-2.6)
--- NOTE | 2017-05-19 10:12 | PCM.PNMED ---
Subjective Date of Service May 19, 2017 Subjective Denies any new issues/complaints Exam Vital Signs Vital Sign - Last Date Time Temp Pulse Resp B/P Pulse Ox O2 Delivery O2 Flow Rate FiO2 05/19/17 08:00 Ventilator 05/19/17 04:28 36.8 51 20 171/77 97 05/15/17 16:05 2.00 05/14/17 11:31 30 Intake and Output 05/18/17 05/18/17 05/19/17 Cumulative From/Thru 15:00 23:00 07:00 05/14/17 01:30 - 05/19/17 06:52 Intake Total 0 ml 2916 ml 0 ml 43751 ml Output Total 1100 ml 1200 ml 600 ml 7895 ml Balance -1100 ml 1716 ml -600 ml 3863 ml Intake Oral 0 ml 354 ml 0 ml 752 ml IV Total 2562 ml 69808 ml Output Urine Total 1100 ml 1200 ml 600 ml 7895 ml # Bowel Movements 0 0 1 5 Exam General: Alert, No Acute Distress. Head: Normal Eyes: Scleral Anicteric Nose: Mucous Membr Moist/[place] Mouth: Mucous Membr Moist/[place] Neck: Supple Chest & Lungs: Chest Wall Normal, Clear to auscultation bilat Cardiovascular: Regular Rate/Rhythm Abdomen: Soft, NT, ND, +BS Pulses: NL radial bilat Extremities: No cyanosis/clubbing/edema bilat Neurological: Grossly Neurologically Intact. Very hard of hearing and poor vision IVs and Medications Medications Reviewed: Medications were reviewed in detail Lab and Diagnostics Result Diagram: 05/18/17 0530 05/19/17 0806 X-Rays, CTs and MRIs Date of Service: 05/16/17 0826 PROCEDURE: X-RAY CHEST ONE VIEW, PORTABLE ([id number]) IMPRESSION: Bibasilar radiopacities and small bilateral pleural effusion suggesting aspiration/infection. These findings are new when compared with the prior study dated 05/14/17. Dictated by: Lindsey Valdes M.D. on 05/16/2017 at 11:46 Approved by: Lindsey Valdes M.D. on 05/16/2017 at 11:48 Assessment & Plan 87-year-old gentleman with a reported history of new onset seizures diagnosed January 2017, dementia, hypertension, coronary artery disease, and history of stroke, that presented to [facility] 05/14/2017 via EMS for sustained seizure-like activity. He was emergently treated with IV benzodiazepines in addition to Keppra IV, and he subsequently was intubated to protect his airway. He was admitted for evaluation and treatment of status epilepticus. # Acute status epilepticus, present on admission. Resolved. No current obvious seizure activity. - Continue Keppra 500 twice a day started on admission - Neurology consult (when available) - Anticipate long-term need for Keppra # Acute hypoxemic respiratory failure requiring mechanical ventilation for airway protection on admission - Post extubation on 05/14/17 # Possible acute aspiration pneumonia, present on admission. - CXR on 05/16 suggestive of bibasilar pneumonia - Sputum culture growing Streptococcus Pneumoniae - Continued Zosyn (05/14/17 - 05/18/17) - Appreciate ID consult. Will followup with recs - Abx changed to Ceftriaxone and Flagyl 500 mg bid for better aspiration coverage (on 05/18) - When ready for d/c will go home on Augmentin by the oral route to finish a seven day course. # Acute UTI, present on admission - Cultures not sent on admission! - Repeat UA 05/17 with negative culture - Abx as noted above # Acute hypokalemia. - Resolved after repletion # Acute Lactic Acid elevation, present on admission - Resolved - Likely due to presenting seizure # Chronic hypertension, poorly controlled. POA. - Continue with Coreg 6.25 twice a day - Continue hydralazine - Continue Imdur - Consider adding low dose DOTTY-I # Acute kidney injury on chronic kidney disease, stage III, present on admission. - Resolved and back to baseline # History of dementia, chronic. - Presumed stable # History of coronary artery disease with myocardial infarction, chronic. Stable - Continue with usual medications. # History of chronic pain on chronic continuous opiate therapy. Stable - Continue home medications. # Hypoalbuminemia, appears chronic, present on admission. Presumed stable - On admit: 2.8 - Monitor, encourage dietary protein intake # Goals of care, ongoing. - Palliative care consulted. Will followup with recs Dispo: ? SNF in 1-2 days GI Prophylaxis: Proton Pump Inhibitor VTE Prophylaxis: Sub-Q Heparin (Unfractionated) VTE Mechanical Devices: Intermittant Pneumatic CD Jose Guzman May 19, 2017 10:12
[2017-05-19 13:25] VITALS: BP 146/84; PULSE 65; RESP 20; O2SAT 95
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
[2017-05-19 20:58] VITALS: PULSE 73; RESP 20; O2SAT 98
[2017-05-19 21:33] VITALS: BP 175/88; PULSE 69
[2017-05-20 00:33] VITALS: BP 158/60; PULSE 55; O2SAT 99
[2017-05-20] MEDS: 0.9% Sodium Chloride 1,000 ML IV SCH (03:51)
--- NOTE | 2017-05-20 04:34 | PROCED ---
[address] [address] EEG PATIENT: DION PANIAGUA : 1930 MR#: [id number] ADMIT: 05/14/2017 JOB ID: [id number] DATE OF SERVICE: 05/19/2017 REQUESTING PHYSICIAN: Jose Guzman MD. CLINICAL HISTORY: The patient is an 87-year-old gentleman with confusional spells, shaking and witnessed generalized seizure with left eye deviation by ER staff. He had stopped his medications, now back on Keppra. History of dementia. The patient is somnolent. TECHNICAL DESCRIPTION: This digital EEG was recorded using a 25 scalp and ear electrode system with two EKG electrodes. It was reviewed on the bipolar and referential montages using a 10/20 International Electrode Placement System. DESCRIPTION: While awake and with eyes closed, there is considerable muscle artifact that obscures the recording. This is a low amplitude recording otherwise. Six hertz rhythmic activity is noted in the occipital head region which attenuates with eye opening. There are no focal lateralizing or epileptiform abnormalities seen. The patient enters sleep at which time there is further slowing of the background rhythm and appropriate sleep architecture noted in both hemispheres. The patient is uncooperative with activation. Photic driving does not reveal any paroxysmal discharges. Rhythm strip shows intermittently irregular rhythm. IMPRESSION: Abnormal electroencephalogram due to slowing and low amplitude. The Patient awake and asleep. Considerable muscle artifact obscures the recording, but there does not appear to be any ongoing seizure activity. Abnormal electrocardiogram with irregular rhythm is noted and additional workup and monitoring is recommended. Clinical correlation advised. Normal electroencephalogram without epileptiform abnormalities, eliminates subclinical epilepsy as a cause for the patient's confusion. It does not eliminate the possibility of seizures. [facility]
[2017-05-20] MEDS: Piperacillin-Tazo 3.375 Gm Inj 3.375 GM in Dextrose 5% Minibag Plus 50 ML IV SCH (04:38)
[2017-05-20 06:09] VITALS: BP 185/79; PULSE 82; RESP 20; O2SAT 97
[2017-05-20] MEDS: Pantoprazole 40 mg ER24 Tablet PO SCH (06:30)
[2017-05-20] MEDS ORDERED: Amoxicillin-Clav 875-125 mg Tablet PO SCH (08:30)
[2017-05-20 08:55] VITALS: BP 166/75; PULSE 72; RESP 16; O2SAT 99
[2017-05-20] MEDS: Isosorbide Mononitrate 30 mg ER24 Tablet PO SCH (09:08)
[2017-05-20] MEDS ORDERED: LISI10TA PO (11:04)
[2017-05-20] MEDS ORDERED: KEP500TA PO ×2 (11:04→11:24)
[2017-05-20] MEDS ORDERED: CARV6.252 PO (11:04)
[2017-05-20] MEDS ORDERED: AGM875T PO (11:04)
--- NOTE | 2017-05-20 11:07 | PCM.DIMED ---
Discharge Instructions Date of Service May 20, 2017 Dates of Hospitalization May 14, 2017 at 04:21 Discharge Diagnosis Discharge Diagnosis # Acute status epilepticus, present on admission. Resolved. No current obvious seizure activity. # Acute hypoxemic respiratory failure requiring mechanical ventilation for airway protection on admission - Post extubation on 05/14/17 # Possible acute aspiration pneumonia, present on admission. Improving # Acute UTI, present on admission. # Acute hypokalemia. Not present on admission. Resolved # Acute Lactic Acid elevation, present on admission. Resolved. # Chronic hypertension, poorly controlled. # Acute kidney injury on chronic kidney disease, stage III, present on admission. Back to baseline # History of dementia, chronic. # History of coronary artery disease with myocardial infarction, chronic. Stable # History of chronic pain on chronic continuous opiate therapy. Stable # Hypoalbuminemia, appears chronic, present on admission. Presumed stable Medication Instructions Additional med instructions Followup with primary care provider to ensure getting refills for your medications, especially Keppra (anti-seizure medication) Diet Discharge Diet: Low fat, Low Sodium, Heart Healthy Activity Discharge Activity: Home Health Phyical Therapy Call your provider Call your provider for: Fever or Chills, Shortness of breath, Bleeding, Chest pain, Excessive diarrhea, Weakness (unilateral) Patient Instructions Patient Instructions Seek immediate medical attention if any new or worsening signs or symptoms occur. Follow-up plan 1. Followup with primary care provider in 3-7 days and may consider further referral for outpatient neurology. Follow-up Provider: Flavio Guevara MD, Masoud May 20, 2017 11:07
[2017-05-20 12:30] VITALS: BP 158/69; PULSE 70; RESP 16; O2SAT 98
--- NOTE | 2017-05-20 17:16 | PCM.DC.MED ---
Discharge Summary Date of Service May 20, 2017 Dates of Hospitalization Date of Hospital Admission May 14, 2017 at 04:21 Date of Discharge: May 20, 2017 Providers: Admitting Physician: Charito Carrera DO Primary Care Physician: Flavio Guevara MD Attending Physician: Jose Yi Diagnosis at Time of Discharge Diagnosis at Time of Discharge # Acute status epilepticus, present on admission. Resolved. No current obvious seizure activity. # Acute hypoxemic respiratory failure requiring mechanical ventilation for airway protection on admission - Post extubation on 05/14/17 # Possible acute aspiration pneumonia, present on admission. Improving # Acute UTI, present on admission. # Acute hypokalemia. Not present on admission. Resolved # Acute Lactic Acid elevation, present on admission. Resolved. # Chronic hypertension, poorly controlled. # Acute kidney injury on chronic kidney disease, stage III, present on admission. Back to baseline # History of dementia, chronic. # History of coronary artery disease with myocardial infarction, chronic. Stable # History of chronic pain on chronic continuous opiate therapy. Stable # Hypoalbuminemia, appears chronic, present on admission. Presumed stable Consultations 1. Neurology 2. Pulmonology 3. ID Procedures XRay, CTs & MRIs Date of Service: 05/16/17 0826 PROCEDURE: X-RAY CHEST ONE VIEW, PORTABLE ([id number]) IMPRESSION: Bibasilar radiopacities and small bilateral pleural effusion suggesting aspiration/infection. These findings are new when compared with the prior study dated 05/14/17. Dictated by: Lindsey Valdes M.D. on 05/16/2017 at 11:46 Approved by: Lindsey Valdes M.D. on 05/16/2017 at 11:48 Brief History 87-year-old gentleman with a reported history of new onset seizures diagnosed January 2017, dementia, hypertension, coronary artery disease, and history of stroke, that presented to [facility] 05/14/2017 via EMS for sustained seizure-like activity. He was emergently treated with IV benzodiazepines in addition to Keppra IV, and he subsequently was intubated to protect his airway. He was admitted for evaluation and treatment of status epilepticus. Hospital Course # Acute status epilepticus, present on admission. Resolved. - Continued Keppra 500 twice a day started on admission - Neurology consulted who recommends long-term treatment with Keppra as outpatient - No further seizures noted. # Acute hypoxemic respiratory failure requiring mechanical ventilation for airway protection on admission - Post extubation on 05/14/17 # Possible acute aspiration pneumonia, present on admission. - CXR on 05/16 suggestive of bibasilar pneumonia - Sputum culture growing Streptococcus Pneumoniae - Continued Zosyn (05/14/17 - 05/18/17) - Appreciate ID consult. Will followup with recs - Abx changed to Ceftriaxone and Flagyl 500 mg bid for better aspiration coverage (on 05/18) - When ready for d/c will go home on Augmentin by the oral route to finish a seven day course. # Acute UTI, present on admission - Cultures not sent on admission! - Repeat UA 05/17 with negative culture - Abx as noted above # Acute hypokalemia. - Resolved after repletion # Acute Lactic Acid elevation, present on admission - Resolved - Likely due to presenting seizure # Chronic hypertension, poorly controlled. POA. - Continued with Coreg 6.25 twice a day - Continued hydralazine - Continued Imdur - Added Lisinopril to his regimen as well # Acute kidney injury on chronic kidney disease, stage III, present on admission. - back to baseline # History of dementia, chronic. - Presumed stable # History of coronary artery disease with myocardial infarction, chronic. Stable - Continue with usual medications. # History of chronic pain on chronic continuous opiate therapy. Stable - Continue home medications. # Hypoalbuminemia, appears chronic, present on admission. Presumed stable - On admit: 2.8 - Monitor, encourage dietary protein intake # Goals of care, ongoing. - Palliative care consulted. - Patient is full code per his daughter's wishes who also refuses SNF and wishes for patient to go home. Exam Vital Signs (Last) Date Time Temp Pulse Resp B/P Pulse Ox O2 Delivery O2 Flow Rate FiO2 05/20/17 12:30 36.4 70 16 158/69 98 Room Air 05/15/17 16:05 2.00 05/14/17 11:31 30 Exam General: Alert, No Acute Distress. Head: Normal Eyes: Scleral Anicteric Nose: Mucous Membr Moist/[place] Mouth: Mucous Membr Moist/[place] Neck: Supple Chest & Lungs: Chest Wall Normal, Clear to auscultation bilat Cardiovascular: Regular Rate/Rhythm Abdomen: Soft, NT, ND, +BS Pulses: NL radial bilat Extremities: No cyanosis/clubbing/edema bilat Neurological: Grossly Neurologically Intact. Very hard of hearing and poor vision Test 05/14/17 01:45 05/17/17 08:23 05/17/17 16:55 05/18/17 05:30 Total Bilirubin 0.3mg/dL (0.0-1.2) Aspartate Amino Transf (AST/SGOT) 27U/L (0-50) Alanine Aminotransferase (ALT/SGPT) 16U/L (0-44) Alkaline Phosphatase 78U/L (25-160) Total Creatine Kinase 57U/L (21-232) Total Protein 6.7g/dL (6.4-8.4) Albumin 2.8g/dL (3.4-5.0) Hold Matias Top Tube Received (Received) Levetiracetam (Keppra) Level 1.1ug/mL (10.0-40.0) Prothrombin Time 11.4sec (8.1-12.5) Prothromb Time International Ratio 1.06ratio Activated Partial Thromboplast Time 30.2sec (22.8-33.0) Lactic Acid Level 1.0mmol/L (0.4-2.0) Urine Color Yellow (YELLOW) Urine Appearance Hazy (CLEAR,HAZY) Urine pH 5.5 (5.0-8.0) Urine Specific [place] 1.010 (1.003-1.035) Urine Protein Tracemg/dL (NEG,TRACE) Urine Glucose (UA) Negativemg/dL (NEGATIVE) Urine Ketones Negativemg/dL (NEGATIVE) Urine Occult Blood Negative (NEGATIVE) Urine Nitrite Negative (NEGATIVE) Urine Bilirubin Negative (NEGATIVE) Urine Urobilinogen Normalmg/dL (NORMAL) Urine Leukocyte Esterase Small (NEGATIVE) Urine RBC 0-2/hpf (0-2) Urine WBC 6-10/hpf (0-5) Urine Epithelial Cells Few/hpf (NONE-MOD) Urine Crystals None seen (NONE SEEN) Urine Bacteria Few/hpf (NONE-FEW) Urine Hyaline Casts None/lpf (NONE) Urine Granular Casts None seen (NONE SEEN) Urine Waxy Casts None seen (NONE SEEN) Urine Red Blood Cell Casts None seen (NONE SEEN) Urine White Blood Cell Casts None seen (NONE SEEN) Urine Mucus None seen (None Seen) Urine Trichomonas None seen (NONE SEEN) Urine Yeast None (NONE SEEN) Urinalysis Comment None Urine Culture Reflexed Indicated White Blood Count 6.1th/mm3 (3.8-10.1) Red Blood Count 4.00mil/mm3 (4.40-5.80) Hemoglobin 11.6g/dL (13.8-17.2) Hematocrit 35.6% (41.0-50.0) Mean Corpuscular Volume 89.0fL (81-100) Mean Corpuscular Hemoglobin 29.0pg (27.0-35.0) Mean Corpuscular Hemoglobin Concent 32.6% (32.0-37.0) Red Cell Distribution Width 14.8% (12.3-15.4) Platelet Count 161bil/L (150-400) Neutrophils (%) (Auto) 60.9% (40-74) Lymphocytes (%) (Auto) 24.6% (14-46) Monocytes (%) (Auto) 12.1% (4-12) Eosinophils (%) (Auto) 2.0% (0-5) Basophils (%) (Auto) 0.2% (0-3) Test 05/18/17 17:14 05/19/17 08:06 05/20/17 06:55 Urine Legionella pneumophilia Ag Negative (Negative) Magnesium Level 1.9mg/dL (1.6-2.6) Procalcitonin 0.73ng/mL (0.00-0.08) Sodium Level 146mEq/L (134-144) Potassium Level 3.6mEq/L (3.5-5.2) Chloride Level 114mEq/L (97-108) Carbon Dioxide Level 17mmol/L (18-29) Blood Urea Nitrogen 15mg/dL (8-27) Creatinine 1.48mg/dL (0.76-1.27) Estimat Glomerular Filtration Rate 48mL/min (>59) Glucose Level 92mg/dL (60-99) Calcium Level 8.4mg/dL (8.5-10.1) Discharge Medications Discharge Medications Amoxicillin/Clav K 875-125 mg (Amoxicillin/Clav K 875-125 mg) 875 Mg Tab 1 TAB PO BID Prescribed by: JOSE YI MD Atorvastatin Calcium (Atorvastatin Calcium) 80 Mg Tablet 80 MG PO HS (Reported) Carvedilol (Carvedilol) 6.25 Mg Tablet 6.25 MG PO BID Prescribed by: JOSE YI MD Hydralazine (Hydralazine) 50 Mg Tablet 50 MG PO TID (Reported) Isosorbide MN ER (Isosorbide MN ER) 30 Mg Tab.er.24h 30 MG PO MORNING (Reported ) Levetiracetam (Keppra) 500 Mg Tablet 500 MG PO BID Prescribed by: JOSE YI MD Lisinopril (Lisinopril) 10 Mg Tablet 10 MG PO DAILY Prescribed by: JOSE YI MD Nutritional Supplement (Ensure) 113 Gm Pudding 113 GM PO TID (Reported) Trazodone (Trazodone) 100 Mg Tablet 100 MG PO HS (Reported) As needed oxyCODONE (oxyCODONE) 20 Mg Tablet 10-20 MG PO TID PRN PRN For Pain (Reported) Additional med instructions Followup with primary care provider to ensure getting refills for your medications, especially Keppra (anti-seizure medication) Followup Plan Disposition: Home with home health Follow-up plan 1. Followup with primary care provider in 3-7 days and may consider further referral for outpatient neurology. Discharge Diet: Low fat, Low Sodium, Heart Healthy Discharge Activity: Home Health Phyical Therapy Patient Instructions Seek immediate medical attention if any new or worsening signs or symptoms occur. Follow-up Provider: Flavio Guevara MD Time spent 30 min copies to: Flavio Guevara MD, Masoud May 20, 2017 17:16
== END 2017-05-20 13:50 | disposition home health service (06) | DRG 100 ==
LOC: SED 00:57 → PCC 04:21 → CCU 06:10 → PCC 14:53 → MPC 05-16 12:15
PROVIDERS: ADMIT Internal Medicine; ATTEND Internal Medicine
PROC: 0BH17EZ Insertion of Endotracheal Airway into Trachea, Via Natural or Artificial Opening (ICD-10-PCS; principal; 2017-05-14)
PROC: 5A1935Z Respiratory Ventilation, Less than 24 Consecutive Hours (ICD-10-PCS; 2017-05-14)
PROC: 4A033R1 Measurement of Arterial Saturation, Peripheral, Percutaneous Approach (ICD-10-PCS; 2017-05-14)
PROC: 4A00X4Z Measurement of Central Nervous Electrical Activity, External Approach (ICD-10-PCS; 2017-05-20)
DX: G40.801 Other epilepsy, not intractable, with status epilepticus (principal); J96.01 Acute respiratory failure with hypoxia; J69.0 Pneumonitis due to inhalation of food and vomit; E87.2 Acidosis; N17.9 Acute kidney failure, unspecified; N39.0 Urinary tract infection, site not specified; E86.0 Dehydration; E87.6 Hypokalemia; F03.90 Unspecified dementia, unspecified severity, without behavioral disturbance, psychotic disturbance, mood disturbance, and anxiety; I25.10 Atherosclerotic heart disease of native coronary artery without angina pectoris; I12.9 Hypertensive chronic kidney disease with stage 1 through stage 4 chronic kidney disease, or unspecified chronic kidney disease; N18.3 Chronic kidney disease, stage 3 (moderate); G89.29 Other chronic pain; Z79.891 Long term (current) use of opiate analgesic; I25.2 Old myocardial infarction

== ENCOUNTER 2017-05-21 13:54 | Emergency (ER) | payer MEDICARE, MEDICAID ==
[~2017-05-21] VITALS: Ht 180.3 cm; Wt 61.2 kg
[2017-05-21] VITALS (7 sets, daily range): BP systolic 172–196; BP diastolic 67–92; PULSE 47–60; RESP 16; O2SAT 98–100
[~2017-05-21 13:54] MED LIST changes: +AGM875T PO; -AMLO5TAB2 PO; -CARV3.122 PO; +CARV6.252 PO; +LISI10TA PO
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
[2017-05-21] MEDS ORDERED: 0.9% Sodium Chloride 1,000 ML IV ONE (16:01)
[2017-05-21] MEDS ORDERED: Midazolam 5 mg/mL 10 mL Inj IM PRN (16:45)
--- NOTE | 2017-05-21 18:39 | DRSVH ---
PROCEDURE: CT BRAIN WITHOUT CONTRAST ([id number]) INDICATIONS: AMS TECHNIQUE: Noncontrast 4.5 mm thick angled axial sections acquired from the foramen magnum to the vertex, with c oronal reformats. COMPARISON: Merged With [facility], CT, CT BRAIN W CON, 01/27/2017, 9:35. Merged With [facility], CT , CT BRAIN WO CON, 05/14/2017, 2:21. FINDINGS: Image quality: Excellent. CSF spaces: Basal cisterns are patent. No extra-axial fluid collections. The ventricles are symmet weston in size and shape. Brain: No intracranial bleeds or masses. There is cerebral volume loss for age, with resultant vent ricular and sulcal prominence. There are periventricular and deep white matter chronic small vessel ischemic changes. There is intracranial internal carotid artery atherosclerosis. Skull and face: Calvarium and visualized facial bones appear intact, without suspicious lesions. Sinuses: Visualized sinuses and mastoids are clear. IMPRESSION: 1. No acute intracranial process. 2. Moderate atrophy and chronic microvascular ischemic changes. Dictated by: Mary Ashton M.D. on 05/21/2017 at 18:36 Approved by: Mary Ashton M.D. on 05/21/2017 at 18:37
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
[2017-05-21] MEDS ORDERED: Midazolam 5 mg/mL 10 mL Inj IM ONE (19:15)
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
[2017-05-21] MEDS ORDERED: _LORazepam 1 mg Tablet PO PRN (20:55)
== END 2017-05-21 22:17 | disposition home or self-care (01) ==
LOC: SED 13:54 → EDBD 13:54 → MPC 17:57 → UNDOADMIN 17:57 → MPC 19:20 → UNDOADMOB 19:20
DX: R45.1 Restlessness and agitation (principal); M79.89 Other specified soft tissue disorders; I12.9 Hypertensive chronic kidney disease with stage 1 through stage 4 chronic kidney disease, or unspecified chronic kidney disease; F03.90 Unspecified dementia, unspecified severity, without behavioral disturbance, psychotic disturbance, mood disturbance, and anxiety; F17.200 Nicotine dependence, unspecified, uncomplicated; I25.2 Old myocardial infarction; I25.10 Atherosclerotic heart disease of native coronary artery without angina pectoris; Z87.440 Personal history of urinary (tract) infections; Z87.01 Personal history of pneumonia (recurrent)
CPT/HCPCS: 70450; 93005; 96374; 96376; 99285; J2250